=== PATIENT | male | born 1950 | race American Indian/Alaskan Native ===

== ENCOUNTER 2016-08-23 09:48 | Inpatient (IN) | payer OTHER ==
[2016-08-23 09:59] VITALS: BMI 24.1
--- NOTE | 2016-08-23 10:13 | PDOC ---
History of Present Illness - History of Present Illness Initial Comments: 08/23/16 10:59 The patient is a 66 year old male, with a significant past medical history of hypertension, diabetes mellitus, hyperlipidemia (diet controlled), and CKD, who presents to the emergency department with daughter for persistent epigastric pain, nausea, belching, and intermittent dizziness for 8 days. He reports he was seen at [facility] on 08/14/16 and recently discharged on 08/17/16 for chest pain, but reports the onset of his current symptoms occurred 3 days after starting amiodarone 400 mg at discharge. He describes the pain as an intermittent burning to his abdomen diffusely. He reports the burning will intermittently radiate to the middle of his chest. He reports the burning is alleviated about an hour after eating, and states he has been eating every 2-3 hours to avoid experiencing pain. He reports dizziness while experiencing the epigastric burning. He reports nausea, but denies vomiting. He reports he was found to be VTach at [facility] and also reports having an angiogram which was negative for cardiac blockage. He denies shortness of breath, headache. He denies fever, chills, vomit, diarrhea and constipation. He denies dysuria, frequency, urgency and hematuria. Allergies: NKDA Past surgical history: thymectomy (2011), endoscopy (2013) Social history: denies toxic habits PCP - Dr. Maryellen Kline Finished Goods Stock Clerk - Dr. Shaylee Finnegan Acquisition Specialist - Dr. Silva <Annalisa Carrero - Last Filed: 08/23/16 12:19> <Berkley Sims - Last Filed: 08/25/16 10:08> - General Chief Complaint: Pain Stated Complaint: HEARTBURN Time Seen by Provider: 08/23/16 10:08 Past History <Annalisa Carrero - Last Filed: 08/23/16 12:19> - Past Medical History Anemia: No Asthma: No Cancer: No Cardiac Disorders: No (SVT) CVA: No COPD: No CHF: No Dementia: No Diabetes: Yes GI Disorders: No Disorders: No HTN: Yes Hypercholesterolemia: Yes Liver Disease: No Seizures: Yes (episodes during sleep of inability to move or speak) Thyroid Disease: Yes (HYPO) - Psycho/Social/Smoking Cessation Hx Anxiety: No Suicidal Ideation: No Smoking Status: No Smoking History: Never smoked Have you smoked in the past 12 months: No Number of Cigarettes Smoked Daily: 0 Information on smoking cessation initiated: No Hx Alcohol Use: No Drug/Substance Use Hx: No Substance Use Type: None Hx Substance Use Treatment: No <SimsChristinBerkley - Last Filed: 08/25/16 10:08> - Past Medical History Allergies/Adverse Reactions: Allergies Allergy/AdvReac Type Severity Reaction Status Date / Time No Known Allergies Allergy Verified 08/23/16 09:59 Home Medications: Ambulatory Orders Clonidine HCl 0.1 mg PO BID 04/29/13 Insulin Glargine,Hum.rec.anlog [Lantus Solostar PEN -] 15 units SQ HS 04/29/13 Levothyroxine [Synthroid -] 88 mcg PO DAILY 04/29/13 Amiodarone HCl [Cordarone] 400 mg PO DAILY 08/23/16 Atorvastatin Ca [Lipitor] 40 mg PO HS 08/23/16 Carvedilol [Coreg -] 6.25 mg PO BID 08/23/16 Famotidine 20 mg PO DAILY 08/23/16 Losartan Potassium 25 mg PO DAILY 08/23/16 Pantoprazole Sodium 40 mg PO DAILY 08/23/16 Pyridostigmine [Mestinon] 60 mg PO BID 08/23/16 Spironolactone 60 mg PO DAILY 08/23/16 Review of Systems - Review of Systems Able to Perform ROS?: Yes Comments:: 08/23/16 10:59 GENERAL/CONSTITUTIONAL: No fever or chills. No weakness. HEAD, EYES, EARS, NOSE AND THROAT: No change in vision. No ear pain or discharge. No sore throat. CARDIOVASCULAR: No chest pain or shortness of breath. RESPIRATORY: No cough, wheezing, or hemoptysis. GASTROINTESTINAL: (+) abdominal discomfort with epigastric burning, nausea, and gas. No vomiting, diarrhea or constipation. GENITOURINARY: No dysuria, frequency, or change in urination. MUSCULOSKELETAL: No joint or muscle swelling or pain. No neck or back pain. SKIN: No rash NEUROLOGIC: No headache, vertigo, loss of consciousness, or change in strength/ sensation. ENDOCRINE: No increased thirst. No abnormal weight change. HEMATOLOGIC/LYMPHATIC: No anemia, easy bleeding, or history of blood clots. ALLERGIC/IMMUNOLOGIC: No hives or skin allergy. <Annalisa Carrero - Last Filed: 08/23/16 12:19> *Physical Exam - Vital Signs Last Vital Signs Temp Pulse Resp BP Pulse Ox 97.9 F 60 18 181/97 100 08/23/16 09:55 08/23/16 09:55 08/23/16 09:55 08/23/16 09:55 08/23/16 09:55 - Physical Exam Comments: 08/23/16 11:00 GENERAL: Awake, alert, and fully oriented, in no acute distress HEAD: No signs of trauma EYES: PERRLA, EOMI, sclera anicteric, conjunctiva clear ENT: Auricles normal inspection, hearing grossly normal, nares patent, oropharynx clear without exudates. Moist mucosa NECK: Normal ROM, supple, no lymphadenopathy, JVD, or masses LUNGS: Breath sounds equal, clear to auscultation bilaterally. No wheezes, and no crackles HEART: (+) Bradycardic with normal rhythm, normal S1 and S2, no murmurs, rubs or gallops ABDOMEN: Soft, nontender, normoactive bowel sounds. No guarding, no rebound. No masses EXTREMITIES: Normal range of motion, no edema. No clubbing or cyanosis. No cords, erythema, or tenderness NEUROLOGICAL: Cranial nerves II through XII grossly intact. Normal speech, normal gait SKIN: Warm, Dry, normal turgor, no rashes or lesions noted. <Annalisa Carrero - Last Filed: 08/23/16 12:19> - Vital Signs Last Vital Signs Temp Pulse Resp BP Pulse Ox 97.9 F 60 18 181/97 100 08/23/16 09:55 08/23/16 09:55 08/23/16 09:55 08/23/16 09:55 08/23/16 09:55 <Berkley Sims - Last Filed: 08/25/16 10:08> Heart Score/ECG Review - ECG Impressions Comment:: EKG read 09:57- Sinus agatha 57 bpm, ST elev II and III, biphasic T wave V3 <Berkley Sims - Last Filed: 08/25/16 10:08> ED Treatment Course - LABORATORY CBC & Chemistry Diagram: 08/23/16 10:25 08/23/16 10:25 - RADIOLOGY Radiograph Interpretation: 08/23/16 11:16 CXR was read by Dr. Jeff at 10:38 Impression: Status post sternotomy, minimal platelike atelectasis adjacent left heart border. otherwise negative. <Annalisa Carrero - Last Filed: 08/23/16 12:19> - LABORATORY CBC & Chemistry Diagram: 08/25/16 05:35 08/25/16 05:35 <Berkley Sims - Last Filed: 08/25/16 10:08> Medical Decision Making - Medical Decision Making 08/23/16 11:54 Dr. Kline was called at the office requesting a call back for doctor to doctor consult at 11:53 08/23/16 12:02 Dr. Kline returned the call and the patient's case was discussed. 08/23/16 12:19 Dr. Silva was paged at this time requesting a call back for doctor to doctor consult. Dr. Barrientos is on-call today and was paged overhead at 12:20. <Annalisa Carrero - Last Filed: 08/23/16 12:19> - Medical Decision Making Pt presents with belching, epigastric discomfort, "gassy" sensation. He has multiple cardiac risk factors, and his EKG shows a Wellen sign that was not present in last EKG from February. He does not have his records from [facility], but family is going to bring what they have. Found to have unexplained hyponatremia (as per family, his sodium was 124 at [facility], has not followed up with renal). D/ w Dr. Barrientos, will evaluate. I will admit for further evaluation. <Berkley Sims - Last Filed: 08/25/16 10:08> *DC/Admit/Observation/Transfer - Attestations Scribe Attestion: 08/23/16 11:01 Documentation prepared by Annalisa Carrero, acting as er medical technician for Berkley Sims MD <Annalisa Carrero - Last Filed: 08/23/16 12:19> - Discharge Dispostion Admit: Yes <Berkley Sims - Last Filed: 08/25/16 10:08> Diagnosis at time of Disposition: Hyponatremia, EKG abnormalities, Hiccups - Discharge Dispostion Condition at time of disposition: Guarded - Referrals
[2016-08-23 10:46] LABS: BASOPHIL 0.9 % (0-2.0); EOSINOPHIL 2.1 % (0-4.5); MCH 29.8 pg (25.7-33.7); MEAN PLT VOLUME 9.6 fl (7.5-11.1); NEUTROPHILS 73.9 % (42.8-82.8); PLATELET COUNT 242 K/MM3 (134-434); RDW 13.6 % (11.9-15.9); WHITE BLOOD COUNT 8.9 K/mm3 (4.0-10.0)
[2016-08-23 10:55] LABS: ALBUMIN 3.9 g/dl (3.4-5.0); BILIRUBIN,TOTAL 0.9 mg/dL (0.2-1.0); CALCIUM 8.7 mg/dL (8.5-10.1); COCKROFT - GAULT 24.46; CREATININE 2.8 mg/dL (0.7-1.3)
[2016-08-23 10:59] LABS: TOT PROT 7.4 g/dl (6.4-8.2); TROPONIN I 0.04 ng/ml (0.00-0.05)
[2016-08-23] MEDS ORDERED: DICYCLOMINE HCL 20 MG TABLET PO ONE (11:03)
[2016-08-23 11:15] LABS: INR 0.97 (0.82-1.09); PROTHROMBIN TIME (PATIENT) 10.7 SEC (9.98-11.88)
[2016-08-23 11:46] LABS: URINE APPEARANCE CLEAR; URINE BILIRUBIN NEGATIVE (NEGATIVE); URINE BLOOD 2+ (NEGATIVE); URINE COLOR COLORLESS; URINE GLUCOSE (UA) 1+ (NEGATIVE); URINE KETONE NEGATIVE (NEGATIVE); URINE LEUK ESTERASE NEGATIVE (NEGATIVE); URINE NITRITE NEGATIVE (NEGATIVE); URINE PROTEIN 1+ (NEGATIVE); URINE UROBILINOGEN NEGATIVE E.U./dl (0.2-1.0)
[2016-08-23 11:50] LABS: URINE RBC <1 /hpf (0-3)
[2016-08-23] MEDS ORDERED: ACETAMINOPHEN 325 MG TABLET (FP) PO ONE ×2 (12:06→21:22)
[2016-08-23] MEDS ORDERED: ACETAMINOPHEN 325 MG TABLET (FP) ONE ×2 (12:11→21:17)
--- NOTE | 2016-08-23 13:18 | EKG ---
Test Reason : Blood Pressure : / mmHG Vent. Rate : 058 BPM Atrial Rate : 058 BPM P-R Int : 206 ms QRS Dur : 106 ms QT Int : 486 ms P-R-T Axes : 059 012 051 degrees QTc Int : 477 ms SINUS BRADYCARDIA T WAVE ABNORMALITY, CONSIDER ANTERIOR ISCHEMIA PROLONGED QT ABNORMAL ECG WHEN COMPARED WITH ECG OF 23-FEB-2016 14:26, NONSPECIFIC T WAVE ABNORMALITY NOW EVIDENT IN INFERIOR LEADS T WAVE INVERSION NOW EVIDENT IN ANTERIOR LEADS QT HAS LENGTHENED Confirmed by FLORENCIA PEARCE, BING ([id number]) on 08/23/2016 1:18:00 PM Referred By: Confirmed By:BING DON MD
--- NOTE | 2016-08-23 14:02 | PN ---
Teaching Attending Note Name of Resident: Steffi Weaevr ATTENDING PHYSICIAN STATEMENT I saw and evaluated the patient. I reviewed the resident's note and discussed the case with the resident. I agree with the resident's findings and plan as documented. SUBJECTIVE:c/o burping and gas pains x1 week. assoc with abdominal burning sensation radiating up towards his throat. relieved with eating. denies NSAID use but is on asa daily for CAD. home medications recently changed with recent hospitalization at [facility] where he had cardiac cath which was reported as clean and no stents were placed. noted to have sustained vtach there with lifevest placed. echo at that admission with EF 35% no significant valve abnormalities and noraml RV function. denies CP, fever, chills, cough, orthopnea Last BM yesterday, denies melena or BRBPR. Had colonoscopy 3 years ago normal per pt Traveled to [facility] >6 months ago OBJECTIVE: Last Vital Signs Temp Pulse Resp BP Pulse Ox 97.9 F 55 L 20 162/98 100 08/23/16 09:55 08/23/16 11:20 08/23/16 11:20 08/23/16 11:20 08/23/16 12:04 General NAD CV S1 S2 RRR no murmur/rub/gallop Lungs CTA B/L no wheezing/rales/rhonchi Abdomen soft NT/ND no rebound or guarding Extremities no pedal edema ASSESSMENT AND PLAN: 66yo M wtih PMH CAD, Vtach with life vest, DM and CKD and HTN presented to the ER and was admitted for further evaluation of their emergent condition 1. Atypical CP- continuous cardiac monitoring. initial concern for +Wellens sign on EKG here, family doctor present with old EKG showing similar old EKG. recent cardiac cath reported as negative. cardiac enzymes neg x1. symptoms more consistent with GERD vs medication side effect. PPI trial .cardiology consulted for possible further workup. trend cardiac enzymes. on both coreg and amio, may need to decrease coreg in setting of bradycardia. will defer to cardiology. 2. Hyponatremia- stated Na 123 on discharge at recent hospitalization. will give 500cc NS slowly for possible dehydration. repeat labs in evening with cardiac markers. check osms. repeat labs. monitor closely. 3. Acute on CKD- Cr baseline 2.5. ivf. nephrology consulted. avoid nephrotoxic agents. hold ARB 4. Hypothyroid- check TSH. (last one here elevated in 2011) resume LT4 5. DM- check A1c. (last one here elevated in 2010). resume home dosing of lantus , iss, bgm 6. DVT ppx- hep sq
[2016-08-23] MEDS ORDERED: SODIUM CHLORIDE 500 ML IV STA (14:26)
[2016-08-23 14:40] LABS: THYROID STIMULATING HORMONE 7.87 uIU/ml (0.358-3.74)
--- NOTE | 2016-08-23 14:58 | HP ---
CHIEF COMPLAINT: epigastric pain PCP: Dr. Kline HISTORY OF PRESENT ILLNESS: 66 year old male with presents with epigastric burning pain that is relieved by eating, intermittent at rest and activity. PMHx of HTN, CAD, DM and CKD ( baseline 2.4), Myasthenia gravis s/p thymectomy five years ago, hypothyroid, who was recently discharged from [facility] last week for chest pain work up. Cardiac cath negative; EF 35%. Patient was found to be have stress induced cardiomyopathy and ventricular tachycardia started and sent home on amiodarone and life vest. Patient states symptoms started three days after starting new medication. Patient denies sob, palpations, leg swelling. loc, dizziness Patient denies fever, chills, n, v, d, Patient denies changed in bowel or bladder ER course was notable for: (1)EKG read 09:57- Sinus agatha 57 bpm, ST elev II and III, biphasic T wave V3 (2)hyponatremia 121 (3)Cr 2.8 Recent Travel: no PAST MEDICAL HISTORY: HTN, CAD, DM and CKD (baseline 2.4), Myasthenia gravis s/p thymectomy five years ago, hypothyroid, PAST SURGICAL HISTORY: thymectomy Social History: Smoking:no Alcohol:no Drugs: no Family History: Allergies No Known Allergies Allergy (Verified 08/23/16 09:59) HOME MEDICATIONS: Home Medications Medication Instructions Recorded Clonidine HCl 0.1 mg PO BID 04/29/13 Insulin Glargine,Hum.rec.anlog 15 units SQ HS 04/29/13 [Lantus Solostar PEN -] Levothyroxine [Synthroid -] 88 mcg PO DAILY 04/29/13 Amiodarone HCl [Cordarone] 400 mg PO DAILY 08/23/16 Atorvastatin Ca [Lipitor] 40 mg PO HS 08/23/16 Carvedilol [Coreg -] 6.25 mg PO BID 08/23/16 Famotidine 20 mg PO DAILY 08/23/16 Losartan Potassium 25 mg PO DAILY 08/23/16 Pantoprazole Sodium 40 mg PO DAILY 08/23/16 Pyridostigmine [Mestinon] 60 mg PO BID 08/23/16 Spironolactone 60 mg PO DAILY 08/23/16 REVIEW OF SYSTEMS CONSTITUTIONAL: Absent: fever, chills, diaphoresis, generalized weakness, malaise, loss of appetite, weight change HEENT: Absent: rhinorrhea, nasal congestion, throat pain, throat swelling, difficulty swallowing, mouth swelling, ear pain, eye pain, visual changes CARDIOVASCULAR: Absent: chest pain, syncope, palpitations, irregular heart rate, lightheadedness , peripheral edema RESPIRATORY: Absent: cough, shortness of breath, dyspnea with exertion, orthopnea, wheezing, stridor, hemoptysis GASTROINTESTINAL: Absent: abdominal pain, abdominal distension, nausea, vomiting, diarrhea, constipation, melena, hematochezia GENITOURINARY: Absent: dysuria, frequency, urgency, hesitancy, hematuria, flank pain, genital pain MUSCULOSKELETAL: Absent: myalgia, arthralgia, joint swelling, back pain, neck pain SKIN: Absent: rash, itching, pallor HEMATOLOGIC/IMMUNOLOGIC: Absent: easy bleeding, easy bruising, lymphadenopathy, frequent infections ENDOCRINE: Absent: unexplained weight gain, unexplained weight loss, heat intolerance, cold intolerance NEUROLOGIC: Absent: headache, focal weakness or paresthesias, dizziness, unsteady gait, seizure, mental status changes, bladder or bowel incontinence PSYCHIATRIC: Absent: anxiety, depression, suicidal or homicidal ideation, hallucinations. PHYSICAL EXAMINATION Vital Signs - 24 hr 08/23/16 12:04 O2 Sat by Pulse 100 Oximetry (%) GENERAL: Awake, alert, and fully oriented, in no acute distress. HEAD: Normal with no signs of trauma. EYES: Pupils equal, round and reactive to light, extraocular movements intact, sclera anicteric, conjunctiva clear. No lid lag. EARS, NOSE, THROAT: Ears normal, nares patent, oropharynx clear without exudates. Moist mucous membranes. NECK: Normal range of motion, supple without lymphadenopathy, JVD, or masses. LUNGS: Breath sounds equal, clear to auscultation bilaterally. No wheezes, and no crackles. No accessory muscle use. HEART: Regular rate and rhythm, normal S1 and S2 without murmur, rub or gallop. ABDOMEN: Soft, nontender, not distended, normoactive bowel sounds, no guarding, no rebound, no masses. No hepatomegaly or splenomegaly. MUSCULOSKELETAL: Normal range of motion at all joints. No bony deformities or tenderness. No CVA tenderness. UPPER EXTREMITIES: 2+ pulses, warm, well-perfused. No cyanosis. No clubbing. No peripheral edema. LOWER EXTREMITIES: 2+ pulses, warm, well-perfused. No calf tenderness. No peripheral edema. NEUROLOGICAL: Cranial nerves II-XII intact. Normal speech. Normal gait. PSYCHIATRIC: Cooperative. Good eye contact. Appropriate mood and affect. SKIN: Warm, dry, normal turgor, no rashes or lesions noted, normal capillary refill. Current Medications Generic Name Dose Route Start Last Admin Trade Name Freq PRN Reason Stop Dose Admin Al Hydroxide/Mg Hydroxide 30 ml 08/23/16 14:54 08/23/16 16:23 Mylanta Oral Suspension - PO 30 ml Q6H PRN Administration DYSPEPSIA Amiodarone HCl 400 mg 08/24/16 10:00 Cordarone - PO DAILY [facility] Atorvastatin Calcium 40 mg 08/23/16 22:00 Lipitor - PO HS [facility] Carvedilol 6.25 mg 08/23/16 22:00 Coreg - PO BID [facility] Clonidine 0.1 mg 08/23/16 22:00 Catapres - PO BID [facility] Heparin Sodium (Porcine) 5,000 unit 08/23/16 22:00 Heparin - SQ TID MATTHEW Pantoprazole Sodium 100 mls @ 200 mls/hr 08/23/16 14:30 08/23/16 15:01 Protonix 40mg Ivpb (Pre-Docked) IVPB 200 mls/hr DAILY [facility] Administration Insulin Detemir 15 units 08/23/16 22:00 Levemir Vial SQ HS [facility] Levothyroxine Sodium 88 mcg 08/24/16 07:00 Synthroid - PO DAILY@0700 [facility] Pyridostigmine Rydal 60 mg 08/23/16 22:00 Mestinon - PO BID [facility] ASSESSMENT/PLAN: 66 year old male with PMHx CAD, recent diagnosed stress induced cardiomyopathy and v tach, on life vest, admitted for concerning ecg for ACS. recent angio at [facility] negative. #Atypical chest pain secondary to v tac , stress induced cardiomyopathy -continue life vest; continuous cardiac monitoring -ECG on admission: Sinus agatha 57 bpm, ST elev II and III, biphasic T wave V3 -when compared to recent hospitalization; this is similar ; in resolving progression -continue amiodarone po daily 400mg -continue coreg 6.25mg po bid -recent echo showing 35% EF; apical wall akinesis -troponin neg x1; trend second #epigastric pain: -protonix IVPB x1 then po -mylanta #Hyponatremia: -Na 121; last Na was 129 upon dc fron [facility] last weak -no signs of seizure/lethargy -urine studies: osmols -restrict fluid #acute on chronic kidney failure poss secondary to IV contrast -hold nephrotoxic drugs, hold diuretic -nephro consult #hypothyroid: -TSH. t4 -levothyroxine #DM: hemoglobin a1c -lantus 15 U sq HS -insulin ss ; bgm Fluids: restrict 1L per day Electrolytes: trens NA q12h Diet: diabetic VTE prophylaxis: heparin Disposition : cont cardiac monitoring Visit type - Emergency Visit Emergency Visit: Yes ED Registration Date: 08/23/16 Care time: The patient presented to the Emergency Department on the above date and was hospitalized for further evaluation of their emergent condition. - New Patient This patient is new to me today: Yes Date on this admission: 08/23/16 - Critical Care Critical Care patient: No
[2016-08-23] MEDS ORDERED: PANTOPRAZOLE SODIUM 100 ML IVPB ONE (15:01)
[2016-08-23] MEDS: PANTOPRAZOLE SODIUM 100 ML IVPB SCH (15:01)
[2016-08-23] MEDS ORDERED: MAG HYDROX/AL HYDROX/SIMETH 30 ML UNIT-DOSE CUP ONE (16:18)
--- NOTE | 2016-08-23 16:21 | CON.CARD ---
Cardiology Consult (text) - Consultation Consultation Note: CC: abdominal pain 66 yo with h/o hypertension, diabetes mellitus, hyperlipidemia (diet controlled) , CKD myasthenia gravis s/p thymectomy, hypothyroid, recent admission for takatsubo cardiomyopathy (denies preceding stressor) complicated by VT (with life vest) who presents to the emergency department with daughter for persistent epigastric pain. Per report was recently admitted to [facility] for chest pain and noted to have VT. Echo with new cardiomyopathy, EF was noted to be 35%. Cath was negative for CAD and patient thought to have takastubo cardiomyopathy. Sent home with life vest and on amiodarone load. while in the hospital and since leaving he has severe epigastric pain about 1-2 hours after eating or taking pills. The pain comes and goes throughtout the day and is relieved by food. Pain is associated with dizziness/headache?, and diaphoresis, facial flushing. + gas/burping all day long. Had these sx's while still hospitalized and was treated with ppi. Was on tele monitoring at that time, presumbly no arrhythmias were noted . no orthopnea, pnd, sob, le edema, bleeding, palps or transient neurologic symptoms. no f/c/s, cough, congestion, rashes, discharge sodium 129, cr 2.3, discharge EKG agatha 56 bpm with pr 208 ms, qtc 515. pmhx/pshx: per hpi family hx: no cardiac hx social hx: never smoker ros: per hpi Ambulatory Orders Clonidine HCl 0.1 mg PO BID 04/29/13 Insulin Glargine,Hum.rec.anlog [Lantus Solostar PEN -] 15 units SQ HS 04/29/13 Levothyroxine [Synthroid -] 88 mcg PO DAILY 04/29/13 Amiodarone HCl [Cordarone] 400 mg PO DAILY 08/23/16 Atorvastatin Ca [Lipitor] 40 mg PO HS 08/23/16 Carvedilol [Coreg -] 6.25 mg PO BID 08/23/16 Famotidine 20 mg PO DAILY 08/23/16 Losartan Potassium 25 mg PO DAILY 08/23/16 Pantoprazole Sodium 40 mg PO DAILY 08/23/16 Pyridostigmine [Mestinon] 60 mg PO BID 08/23/16 Spironolactone 60 mg PO DAILY 08/23/16 Current Medications Al Hydroxide/Mg Hydroxide (Mylanta Oral Suspension -) 30 ml PO Q6H PRN PRN Reason: DYSPEPSIA Amiodarone HCl (Cordarone -) 400 mg PO DAILY [facility] Atorvastatin Calcium (Lipitor -) 40 mg PO HS [facility] Carvedilol (Coreg -) 6.25 mg PO BID [facility] Clonidine (Catapres -) 0.1 mg PO BID [facility] Heparin Sodium (Porcine) (Heparin -) 5,000 unit SQ TID [facility] Pantoprazole Sodium (Protonix 40mg Ivpb (Pre-Docked)) 100 mls @ 200 mls/hr IVPB DAILY [facility] Last Admin: 08/23/16 15:01 Dose: 200 mls/hr Insulin Detemir (Levemir Vial) 15 units SQ HS [facility] Levothyroxine Sodium (Synthroid -) 88 mcg PO DAILY@0700 [facility] Pyridostigmine [place] (Mestinon -) 60 mg PO BID [facility] Spironolactone (Aldactone -) 60 mg PO DAILY [facility] Vital Signs - 24 hr 08/23/16 08/23/16 08/23/16 09:55 10:20 10:45 Temperature 97.9 F Pulse Rate 60 Pulse Rate [ 58 L 60 Left Radial] Respiratory 18 20 20 Rate Blood Pressure 181/97 Blood Pressure 170/85 183/112 [Left Arm] O2 Sat by Pulse 100 100 100 Oximetry (%) 08/23/16 08/23/16 08/23/16 11:20 12:00 12:04 Temperature Pulse Rate Pulse Rate [ 55 L 51 L Left Radial] Respiratory 20 18 Rate Blood Pressure Blood Pressure 162/98 154/90 [Left Arm] O2 Sat by Pulse 100 100 100 Oximetry (%) 08/23/16 08/23/16 12:45 14:15 Temperature Pulse Rate Pulse Rate [ 51 L 53 L Left Radial] Respiratory 18 18 Rate Blood Pressure Blood Pressure 177/116 158/78 [Left Arm] O2 Sat by Pulse 100 100 Oximetry (%) Intake & Output 08/21/16 08/22/16 08/23/16 08/24/16 07:59 07:59 07:59 07:59 Weight 145 lb Nad, calm jvd flat, neck supple ctab, nl effort rrr nl s1, s2 no mrg + bs soft nt nd ext without e/c/c + dp/pt aaox 3 no carotid bruits CBC, BMP 08/23/16 10:25 08/23/16 10:25 Laboratory Tests 08/23/16 10:25 Total Bilirubin 0.9 AST 21 D ALT 38 D Alkaline Phosphatase 66 D Creatine Kinase 193 Creatine Kinase Index 3.1 CK-MB (CK-2) 2.508 Troponin I 0.04 D Albumin 3.9 TSH 7.87 H EKG here: SB with av delay, prolonged qt, biphasic t waves in v3, v4. tele: SB 50's EKG on last admission from last week. Initially biphasic t waves in precordial leads --> development of associated deep TWI --> deep twi spread to limb leads. --> slow resolution Echo at last admit ([facility]): mod reduced lv fn. with mod apical AK. nl rv. nl valves. per report: cath last week, nl cors. CXR: minimal platelike atelectasis adjacent to left heart border Echo 03/2013: normal LV/RV function, impaired relaxation, mild TR, RVSP 35-40 66 yo with h/o hypertension, diabetes mellitus, hyperlipidemia (diet controlled) , CKD myasthenia gravis s/p thymectomy, hypothyroid, recent admission for takatsubo cardiomyopathy (denies preceding stressor) complicated by VT (with life vest) who presents to the emergency department with daughter for persistent epigastric pain. epigastric pain - symptoms may be causing increased vagal tone and further suppression of heart rate/symptomatic bradycardia (resulting in associated diaphoresis, dizziness), would monitor on tele. Unlikely to be from ventricular arrhythmia since he had sx's while being on telemetry monitoring during hospitalization last week. Nl cors last week on cath makes angina very unlikely. Appears euvolemic with recent normal RV, right sided congestion seems to be less likely etiology for symptoms, but will continue to readdress volume status. (received some IVF in ER and will be holding aldactone) - patient with labile blood pressures would rule out abdominal aortic/vascular etiology with abdominal CTA with contrast (if and when reasonable per renal). For now would screen with abdominal u/s and lactate. - further work up of non-cardiac etiologies per pmd takatsubo cardiomyopathy/VT/bradycardia - on life vest - continue amio, coreg, losartan. per discussion with renal will hold aldactone due to hyponatremia. Would decrease dose of carvedilol in case bradycardia contributing to sx's of dizziness, diaphoresis as mentioned above. Additionally would wean clonidine - currently appears euvolemic as mentioned above prolonged qt - qt shortening in comparison to last admit. con't to monitor. Avoid qt prolonging drugs. HTN - per renal known h/o labile pressures, will defer to renal who know patient well in regards to management hyponatremia - per renal. Treatment of thyroid abnormalities per pmd. l
[2016-08-23] MEDS: MAG HYDROX/AL HYDROX/SIMETH 30 ML UNIT-DOSE CUP PO PRN (16:23)
--- NOTE | 2016-08-23 16:39 | CONSULT ---
Consult - text type - Consultation Consultation Note: Renal Consult for THAO on CKD, Hyponatremia This is a 66 year old Gentleman with PMhx of CKD Stage 4 (baseline Cr 2.4), Myasthenia Gravis s/p thymectomy, Hypothyrodism, DM Type 2, Hyperlipidemia, Hypertension who presented to the ED with complaints of epigastric pain and found to have BUN/Cr of 24/2.8 and Na of 124. Pt s/p recent admission to [facility] for STEMI/ACS and Vtach during which he had a cardiac Cath. Cr on discharge 08/17 was 2.3 and Na was 129. Dx on d/c from [facility] was stress induced cardiomyopathy. Pt is currently on life vest. Denies excessive water intake. No N/V, confusion, lethargy, weakness, seizures. PMhx: As above Allergies: NDKA Family Hx: NC Social Hx: no T/A/D ROS: as per HPI Home Meds: Home Medications Medication Instructions Recorded Clonidine HCl 0.1 mg PO BID 04/29/13 Insulin Glargine,Hum.rec.anlog 15 units SQ HS 04/29/13 [Lantus Solostar PEN -] Levothyroxine [Synthroid -] 88 mcg PO DAILY 04/29/13 Amiodarone HCl [Cordarone] 400 mg PO DAILY 08/23/16 Atorvastatin Ca [Lipitor] 40 mg PO HS 08/23/16 Carvedilol [Coreg -] 6.25 mg PO BID 08/23/16 Famotidine 20 mg PO DAILY 08/23/16 Losartan Potassium 25 mg PO DAILY 08/23/16 Pantoprazole Sodium 40 mg PO DAILY 08/23/16 Pyridostigmine [Mestinon] 60 mg PO BID 08/23/16 Spironolactone 60 mg PO DAILY 08/23/16 Vital Signs Temperature 97.9 F 08/23/16 09:55 Pulse Rate 53 L 08/23/16 14:15 Respiratory Rate 18 08/23/16 14:15 Blood Pressure 158/78 08/23/16 14:15 O2 Sat by Pulse Oximetry (%) 100 08/23/16 14:15 Intake & Output 08/20/16 08/21/16 08/22/16 08/23/16 23:59 23:59 23:59 23:59 Weight 145 lb Gen: NAD, awake and alert HEENT: NC/AT, MMM, No JVD CVS: RRR, No M/R Lungs: CTA, no rales or wheeze Abd: soft NT/ND Ext: No edema, clubbing or cyanosis Gu: No bladder distension Neuro: AAOx3, no focal defects CBC, BMP 08/23/16 10:25 08/23/16 10:25 Laboratory Tests 08/23/16 08/23/16 08/23/16 10:25 10:25 10:25 MCV 85.0 Serum Osmolality 263 L Calcium 8.7 AST 21 D ALT 38 D Creatine Kinase 193 TSH 7.87 H Urine Protein Urine Glucose (UA) Urine Blood Urine Osmolality Urine Creatinine 08/23/16 08/23/16 08/23/16 11:19 11:19 15:20 MCV Serum Osmolality Calcium AST ALT Creatine Kinase TSH Urine Protein 1+ H Urine Glucose (UA) 1+ H Urine Blood 2+ H Urine Osmolality 194 L Urine Creatinine 38.0 A/P 66 year old Gentleman with PMhx of CKD Stage 4 (baseline Cr 2.4),Myasthenia Gravis s/p thymectomy, Hypothyrodism, DM Type 2, Hyperlipidemia, Hypertension who presented to the ED with complaints of epigastric pain and found to have BUN /Cr of 24/2.8 and Na of 124. #Hypo-osmolar Hyponatremia Etiology unclear: Hypothyrodism induced vs. hypovolemia from diuretics Check Urine Na, OSM, TSH, COrtisol, Uric acid Hold Aldactone for now Trend Na Q12h Fluid restriction of 1L daily no IVF or salt tabs at this time titrate up Levothyroxine as per primary no indication for 3% saline #Worsening Renal function in setting of CKD Stage 4 contrast nephropathy from contrast exposure on 08.14? normal fluctuation Trend BUN/Cr no IVF at this time hold diuretics continue Losartan for now #Epigastric Pain ? gastritis vs. ACS Work up as per pimary and cardiology PPI, Maalox as needed #Hypertension continue home meds except diuretic pt know to have liable hypertension #CAD r/o ACS/Cardiomyopathy/V-tach Life vest in place continue anti-arrythmics as per cardiology #Hypothyrodism Check T3, T4 Titrate Synthroid as per primary #DM Type 2 Monitor FS Thank you Damon Odell DO
[2016-08-23 20:11] LABS: CALCIUM 8.8 mg/dL (8.5-10.1); COCKROFT - GAULT 25.37; CREATININE 2.7 mg/dL (0.7-1.3)
[2016-08-23 20:13] LABS: TROPONIN I 0.05 ng/ml (0.00-0.05)
[2016-08-23] MEDS: ATORVASTATIN CA 40 MG TABLET (FP) PO SCH (21:32)
[2016-08-23] MEDS: PYRIDOSTIGMINE BROMIDE 60 MG TABLET PO SCH (21:32)
[2016-08-23] MEDS: HEPARIN NA (PORCINE) 5,000 UNITS/ML 1ML VIAL SQ SCH (21:34)
[2016-08-23] MEDS: INSULIN DETEMIR 100 UNITS/ML MDV SQ SCH (21:38)
[2016-08-23] MEDS ORDERED: CARVEDILOL 6.25 MG TABLET (FP) PO SCH (22:00)
[2016-08-23] MEDS ORDERED: cloNIDine HCL 0.1 MG TABLET PO SCH (22:00)
[2016-08-24] MEDS ORDERED: METOCLOPRAMIDE HCL INJECTION 10 MG/2 ML VIAL IVPUSH ONE (04:09)
[2016-08-24] MEDS: LEVOTHYROXINE NA 88 MCG TABLET (FP) PO SCH (06:55)
[2016-08-24] MEDS: HEPARIN NA (PORCINE) 5,000 UNITS/ML 1ML VIAL SQ SCH ×3 (06:55→22:22)
[2016-08-24 08:27] LABS: MCH 29.5 pg (25.7-33.7); MCHC 34.7 g/dl (32.0-35.9); MEAN CELL VOLUME 84.9 fl (80-96); MEAN PLT VOLUME 10.1 fl (7.5-11.1); PLATELET COUNT 248 K/MM3 (134-434); WHITE BLOOD COUNT 9.4 K/mm3 (4.0-10.0)
[2016-08-24 09:59] LABS: BILIRUBIN,TOTAL 1.1 mg/dL (0.2-1.0); CALCIUM 8.5 mg/dL (8.5-10.1); COCKROFT - GAULT 23.28; CREATININE 2.8 mg/dL (0.7-1.3); MAGNESIUM 2.3 mg/dL (1.8-2.4); PHOSPHOROUS 4.7 mg/dL (2.5-4.9); TOT PROT 7.8 g/dl (6.4-8.2)
[2016-08-24] MEDS ORDERED: SPIRONOLACTONE 25 MG TABLET (FP) PO SCH (10:00)
[2016-08-24] MEDS: MAG HYDROX/AL HYDROX/SIMETH 30 ML UNIT-DOSE CUP PO PRN ×3 (10:01→22:27)
[2016-08-24] MEDS: cloNIDine HCL 0.1 MG TABLET PO SCH (10:01)
[2016-08-24] MEDS: AMIODARONE HCL 200 MG TABLET (FP) PO SCH (10:01)
[2016-08-24] MEDS: CARVEDILOL 3.125 MG TABLET (FP) PO SCH ×2 (10:02→22:23)
[2016-08-24] MEDS: PANTOPRAZOLE SODIUM 100 ML IVPB SCH ×3 (10:03→10:15)
[2016-08-24] MEDS ORDERED: PT OWN MED DRAWER 7, Y5N ONE (10:07)
[2016-08-24 10:13] LABS: EOSINOPHIL 1.9 % (0-4.5); MCH 29.2 pg (25.7-33.7); MCHC 34.3 g/dl (32.0-35.9); MEAN PLT VOLUME 10.3 fl (7.5-11.1); NEUTROPHILS 72.2 % (42.8-82.8); PLATELET COUNT 257 K/MM3 (134-434); RDW 13.9 % (11.9-15.9); WHITE BLOOD COUNT 9.4 K/mm3 (4.0-10.0)
[2016-08-24] MEDS: PYRIDOSTIGMINE BROMIDE 60 MG TABLET PO SCH ×2 (10:15→22:25)
[2016-08-24 10:21] LABS: FREE T4 0.8 ng/dl (0.76-1.16)
--- NOTE | 2016-08-24 10:34 | PN ---
Progress Note (short form) - Note Progress Note: s: no cp sob palps dizzy; abd pain better o: Vital Signs Period Temp Pulse Resp BP Sys/Pearson Pulse Ox Last 24 Hr 97.8 F-98.9 F 51-60 18-22 132-187/78-116 99-100 Nad, calm jvd flat, neck supple ctab, nl effort rrr nl s1, s2 no mrg + bs soft nt nd ext without e/c/c aaox 3 Current Medications Generic Name Dose Route Start Last Admin Trade Name Freq PRN Reason Stop Dose Admin Al Hydroxide/Mg Hydroxide 30 ml 08/23/16 14:54 08/24/16 10:01 Mylanta Oral Suspension - PO 30 ml Q6H PRN Administration DYSPEPSIA Amiodarone HCl 400 mg 08/24/16 10:00 08/24/16 10:01 Cordarone - PO 400 mg DAILY [facility]W Administration Atorvastatin Calcium 40 mg 08/23/16 22:00 08/23/16 21:32 Lipitor - PO 40 mg HS MATTHEW Administration Carvedilol 3.125 mg 08/24/16 10:00 08/24/16 10:02 Coreg - PO Not Given BID MATTHEW Clonidine 0.1 mg 08/24/16 10:00 08/24/16 10:01 Catapres - PO 0.1 mg DAILY [facility]W Administration Heparin Sodium (Porcine) 5,000 unit 08/23/16 22:00 08/24/16 06:55 Heparin - SQ 5,000 unit TID [facility] Administration Pantoprazole Sodium 100 mls @ 200 mls/hr 08/23/16 14:30 08/24/16 10:15 Protonix 40mg Ivpb (Pre-Docked) IVPB 200 mls/hr DAILY [facility] Administration Insulin Detemir 15 units 08/23/16 22:00 08/23/16 21:38 Levemir Vial SQ 15 units HS [facility] Administration Levothyroxine Sodium 88 mcg 08/24/16 07:00 08/24/16 06:55 Synthroid - PO 88 mcg DAILY@0700 [facility]W Administration Pyridostigmine [place] 60 mg 08/23/16 22:00 08/24/16 10:15 Mestinon - PO 60 mg BID MATTHEW Administration CBC, BMP 08/24/16 05:58 08/24/16 05:58 EKG here: SB with av delay, prolonged qt, biphasic t waves in v3, v4. tele: SB 50's EKG on last admission from last week. Initially biphasic t waves in precordial leads --> development of associated deep TWI --> deep twi spread to limb leads. --> slow resolution Echo at [facility] mod reduced lv fn. with mod apical AK. nl rv. nl valves. per report: cath last week, nl cors. CXR: minimal platelike atelectasis adjacent to left heart border Echo 03/2013: normal LV/RV function, impaired relaxation, mild TR, RVSP 35-40 a/p: 66 yo with h/o hypertension, diabetes mellitus, hyperlipidemia (diet controlled), CKD myasthenia gravis s/p thymectomy, hypothyroid, recent admission for takatsubo cardiomyopathy (denies preceding stressor) complicated by VT (with life vest) who presents to the emergency department with daughter for persistent epigastric pain. epigastric pain - symptoms may be causing increased vagal tone and further suppression of heart rate/symptomatic bradycardia (resulting in associated diaphoresis, dizziness), would monitor on tele. Unlikely to be from ventricular arrhythmia since he had sx's while being on telemetry monitoring during hospitalization last week at [facility]. Nl cors last week on cath makes angina very unlikely. Appears euvolemic with recent normal RV, right sided congestion seems to be less likely etiology for symptoms, but will continue to readdress volume status. (received some IVF in ER and will be holding aldactone) - patient with labile blood pressures would rule out abdominal aortic/vascular etiology with abdominal CTA with contrast (if and when reasonable per renal). For now would screen with abdominal u/s and lactate. - further work up of non-cardiac etiologies per pmd takatsubo cardiomyopathy/VT/bradycardia - on life vest - continue amio, coreg, losartan. holding aldactone due to hyponatremia. decreased dose of carvedilol in case bradycardia contributing to sx's of dizziness, diaphoresis as mentioned above. Additionally weaning clonidine - currently appears euvolemic prolonged qt - qt shortening in comparison to last admit. con't to monitor. Avoid qt prolonging drugs. HTN - hx of labile bp, cont current meds hyponatremia - per renal. Treatment of thyroid abnormalities per pmd.
--- NOTE | 2016-08-24 12:47 | PN ---
Progress Note (short form) - Note Progress Note: Renal Follow up for Hyponatremia and CKD Pt seen and examined at the bedside denies any abd pain today no sob, chest pain, DANIELLE, confusion, lethargy or weakness denies drinking a lot of water good urine output Vital Signs Temperature 98.1 F 08/24/16 10:00 Pulse Rate 52 L 08/24/16 10:00 Respiratory Rate 20 08/24/16 10:00 Blood Pressure 144/80 08/24/16 10:00 O2 Sat by Pulse Oximetry (%) 99 08/23/16 19:00 Intake & Output 08/21/16 08/22/16 08/23/16 08/24/16 23:59 23:59 23:59 23:59 Intake Total 200 Balance 200 Weight 145 lb 138 lb Gen: NAD, awake and alert CVS: RRR, No M/R Lungs: CTA, no rales or wheeze Abd: soft NT/ND Ext: No edema, clubbing or cyanosis CBC, BMP 08/24/16 05:58 08/24/16 05:58 Current Medications Al Hydroxide/Mg Hydroxide (Mylanta Oral Suspension -) 30 ml PO Q6H PRN PRN Reason: DYSPEPSIA Last Admin: 08/24/16 10:01 Dose: 30 ml Amiodarone HCl (Cordarone -) 400 mg PO DAILY [facility] Last Admin: 08/24/16 10:01 Dose: 400 mg Atorvastatin Calcium (Lipitor -) 40 mg PO HS [facility] Last Admin: 08/23/16 21:32 Dose: 40 mg Carvedilol (Coreg -) 3.125 mg PO BID [facility] Last Admin: 08/24/16 10:02 Dose: Not Given Clonidine (Catapres -) 0.1 mg PO DAILY [facility] Last Admin: 08/24/16 10:01 Dose: 0.1 mg Heparin Sodium (Porcine) (Heparin -) 5,000 unit SQ TID [facility] Last Admin: 08/24/16 06:55 Dose: 5,000 unit Pantoprazole Sodium (Protonix 40mg Ivpb (Pre-Docked)) 100 mls @ 200 mls/hr IVPB DAILY [facility] Last Admin: 08/24/16 10:15 Dose: 200 mls/hr Insulin Detemir (Levemir Vial) 15 units SQ [facility] Last Admin: 08/23/16 21:38 Dose: 15 units Levothyroxine Sodium (Synthroid -) 88 mcg PO DAILY@0700 [facility] Last Admin: 08/24/16 06:55 Dose: 88 mcg Pyridostigmine [place] (Mestinon -) 60 mg PO BID [facility] Last Admin: 08/24/16 10:15 Dose: 60 mg A/P 66 year old Gentleman with PMhx of CKD Stage 4 (baseline Cr 2.4),Myasthenia Gravis s/p thymectomy, Hypothyrodism, DM Type 2, Hyperlipidemia, Hypertension who presented to the ED with complaints of epigastric pain and found to have BUN /Cr of 24/2.8 and Na of 124. #Hypo-osmolar Hyponatremia Etiology unclear: Hypothyrodism induced vs. hypovolemia from diuretics Serum Na 123 depite being 126 yesterday evening start salt tabs 1g daily Trend Na Q12h Uric acid is normal Urine Na not reported pt appears evolemic at the present time #Worsening Renal function in setting of CKD Stage 4 contrast nephropathy from contrast exposure on 08.14? normal fluctuation continue to trend BUN/Cr #Epigastric Pain improved with PPI and Maalox #Hypertension continue Coreg, Clonidoine #CAD r/o ACS/Cardiomyopathy/V-tach Life vest in place continue anti-arrythmics as per cardiology #Hypothyrodism Check T3, T4 Titrate Synthroid as per primary Thank you Damon Odell DO
[2016-08-24] MEDS: SODIUM CHLORIDE 1 GM TABLET PO SCH (13:55)
--- NOTE | 2016-08-24 14:49 | PN ---
Physical Exam: SUBJECTIVE: Patient seen and examined epigastric pain improved; no episodes overnight; tolerating diet. NA levela dropped again today. Bradycardic. Denies chest pain, sob, palpitations. OBJECTIVE: Vital Signs Period Temp Pulse Resp BP Sys/Pearson Pulse Ox Last 24 Hr 97.8 F-98.9 F 51-55 20-22 132-187/79-96 99-100 GENERAL: The patient is awake, alert, and fully oriented, in no acute distress. HEAD: Normal with no signs of trauma. EYES: PERRL, extraocular movements intact, sclera anicteric, conjunctiva clear. No ptosis. ENT: Ears normal, nares patent, oropharynx clear without exudates, moist mucous membranes. NECK: Trachea midline, full range of motion, supple. LUNGS: Breath sounds equal, clear to auscultation bilaterally, no wheezes, no crackles, no accessory muscle use. HEART: bradycardic and rhythm, S1, S2 without murmur, rub or gallop. ABDOMEN: Soft, nontender, nondistended, normoactive bowel sounds, no guarding, no rebound, no hepatosplenomegaly, no masses. EXTREMITIES: 2+ pulses, warm, well-perfused, no edema. NEUROLOGICAL: Cranial nerves II through XII grossly intact. Normal speech, gait not observed. PSYCH: Normal mood, normal affect. SKIN: Warm, dry, normal turgor, no rashes or lesions noted Laboratory Results - last 24 hr 08/23/16 08/23/16 08/23/16 15:20 19:25 19:25 WBC RBC Hgb Hct MCV MCHC RDW Plt Count MPV Neutrophils % Lymphocytes % Monocytes % Eosinophils % Basophils % Sodium 126 L Potassium 5.2 H Chloride 89 L Carbon Dioxide 26 Anion Gap 11 BUN 25 H Creatinine 2.7 H Creat Clearance w eGFR POC Glucometer Random Glucose 122 H D Lactic Acid Calcium 8.8 Phosphorus Magnesium Total Bilirubin AST ALT Alkaline Phosphatase Creatine Kinase 204 CK-MB (CK-2) Rel Index Cancelled Troponin I 0.05 Total Protein Albumin Free T4 Urine Osmolality 194 L 08/23/16 08/24/16 08/24/16 21:29 05:09 05:58 WBC 9.4 RBC 4.55 Hgb 13.4 Hct 38.6 MCV 84.9 MCHC 34.7 RDW 14.0 Plt Count 248 MPV 10.1 Neutrophils % Lymphocytes % Monocytes % Eosinophils % Basophils % Sodium Potassium Chloride Carbon Dioxide Anion Gap BUN Creatinine Creat Clearance w eGFR POC Glucometer 157 150 Random Glucose Lactic Acid Calcium Phosphorus Magnesium Total Bilirubin AST ALT Alkaline Phosphatase Creatine Kinase CK-MB (CK-2) Rel Index Troponin I Total Protein Albumin Free T4 Urine Osmolality 08/24/16 08/24/16 08/24/16 05:58 05:58 09:25 WBC 9.4 RBC 4.58 Hgb 13.4 Hct 38.9 MCV 85.0 MCHC 34.3 RDW 13.9 Plt Count 257 MPV 10.3 Neutrophils % 72.2 Lymphocytes % 13.9 Monocytes % 11.0 H Eosinophils % 1.9 Basophils % 1.0 Sodium 123 L* Potassium 5.1 Chloride 88 L Carbon Dioxide 25 Anion Gap 10 BUN 28 H Creatinine 2.8 H Creat Clearance w eGFR 22.86 POC Glucometer Random Glucose 157 H D Lactic Acid 1.359 Calcium 8.5 Phosphorus 4.7 Magnesium 2.3 Total Bilirubin 1.1 H D AST 18 ALT 38 Alkaline Phosphatase 69 Creatine Kinase CK-MB (CK-2) Rel Index Troponin I Total Protein 7.8 Albumin 4.0 Free T4 0.80 Urine Osmolality Active Medications Generic Name Dose Route Start Last Admin Trade Name Freq PRN Reason Stop Dose Admin Al Hydroxide/Mg Hydroxide 30 ml 08/23/16 14:54 08/24/16 14:04 Mylanta Oral Suspension - PO 30 ml Q6H PRN Administration DYSPEPSIA Amiodarone HCl 400 mg 08/24/16 10:00 08/24/16 10:01 Cordarone - PO 400 mg DAILY MATTHEW Administration Atorvastatin Calcium 40 mg 08/23/16 22:00 08/23/16 21:32 Lipitor - PO 40 mg HS MATTHEW Administration Carvedilol 3.125 mg 08/24/16 10:00 08/24/16 10:02 Coreg - PO Not Given BID MATTHEW Clonidine 0.1 mg 08/24/16 10:00 08/24/16 10:01 Catapres - PO 0.1 mg DAILY MATTHEW Administration Heparin Sodium (Porcine) 5,000 unit 08/23/16 22:00 08/24/16 13:55 Heparin - SQ 5,000 unit TID MATTHEW Administration Pantoprazole Sodium 100 mls @ 200 mls/hr 08/23/16 14:30 08/24/16 10:15 Protonix 40mg Ivpb (Pre-Docked) IVPB 200 mls/hr DAILY MATTHEW Administration Insulin Detemir 15 units 08/23/16 22:00 08/23/16 21:38 Levemir Vial SQ 15 units HS MATTHEW Administration Levothyroxine Sodium 88 mcg 08/24/16 07:00 08/24/16 06:55 Synthroid - PO 88 mcg DAILY@0700 MATTHEW Administration Pyridostigmine [place] 60 mg 08/23/16 22:00 08/24/16 10:15 Mestinon - PO 60 mg BID MATTHEW Administration Sodium Chloride 1 gm 08/24/16 13:00 08/24/16 13:55 Sodium Chloride Tablet - PO 1 gm DAILY MATTHEW Administration ASSESSMENT/PLAN: 66 year old male with PMHx CAD, recent diagnosed stress induced cardiomyopathy and v tach, on life vest, admitted for concerning ecg for ACS. recent angio at [facility] negative. #bradycardic; titrate coreg; #Atypical chest pain secondary to v tac , stress induced cardiomyopathy -continue life vest; continuous cardiac monitoring -ECG on admission: Sinus agatha 57 bpm, ST elev II and III, biphasic T wave V3 -when compared to recent hospitalization; this is similar ; in resolving progression -continue amiodarone po daily 400mg -continue coreg 6.25mg po bid -recent echo showing 35% EF; apical wall akinesis -troponin neg x1; trend second #epigastric pain: improved with antacids -protonix IVPB x1 then po -mylanta -abdominal US r/o other pathology -Lactic acid normal #Hyponatremia hypoosmolar; -Na 121 ->126-->123l -no signs of seizure/lethargy -urine studies: osmols -restrict fluid -start salt tablet 1gm day -check sodium q12h #acute on chronic kidney failure poss secondary to IV contrast: Cr tredning up 2.8 -hold nephrotoxic drugs, hold diuretic -nephro consult #hypothyroid: most likey subacute afer recent hospitalization ; would leave home medication as is -TSH.elevated: t4 with in normal limits -levothyroxine #DM: hemoglobin a1c -lantus 15 U sq HS -insulin ss ; bgm Fluids: restrict 1L per day Electrolytes: trend NA q12h Diet: diabetic VTE prophylaxis: heparin Disposition : cont cardiac monitoring; trend sodium Visit type - Emergency Visit Emergency Visit: Yes ED Registration Date: 08/23/16 Care time: The patient presented to the Emergency Department on the above date and was hospitalized for further evaluation of their emergent condition. - New Patient This patient is new to me today: No - Critical Care Critical Care patient: No
--- NOTE | 2016-08-24 17:59 | PN ---
Teaching Attending Note Name of Resident: Steffi Weaver ATTENDING PHYSICIAN STATEMENT I saw and evaluated the patient. I reviewed the resident's note and discussed the case with the resident. I agree with the resident's findings and plan as documented. SUBJECTIVE:currently asymptomatic. denies CP, SOB,fevr, chills, palpitations, N/ V/C/D. burning sensation has resolved. OBJECTIVE: Last Vital Signs Temp Pulse Resp BP Pulse Ox 98.1 F 52 L 20 144/80 99 08/24/16 10:00 08/24/16 10:00 08/24/16 10:00 08/24/16 10:08/24/16 09:00 General NAD CV S1 S2 bradycardic no murmur/rub/gallop Lungs CTA B/L no wheezing/rales/rhonchi Abdomen soft NT/ND no rebound or guarding Extremities no pedal edema ASSESSMENT AND PLAN: 66yo M wtih PMH CAD, Vtach with life vest, DM and CKD and HTN presented to the ER and was admitted for further evaluation of their emergent condition 1. Atypical CP- continuous cardiac monitoring. remains bradycardic on decreased dose of coreg. cont to monitor. check abdominal u/s to r/o abdominal pathology for pain which may be contributing to bradycardia (vagal nerve). cardio on board. 2. Hyponatremia- modest improvement. on water restriction. started on salt tablets today by nephrology. monitor BID. 3. Acute on CKD- Cr baseline 2.5. slight trend up. likely contrast induced due to recent cath last week. cont to trend. avoid nephrotoxic agents. hold ARB 4. Hypothyroid- likely sick euthyroid. TSH elevated however normal T4. will not adjust LT4 at this time. will need repeat TSH in 6 weeks. 5. DM- controlled. resume home dosing of lantus, iss, bgm 6. Hyperkalemia- likely in setting of THAO. not treated. on repeat improved. will monitor closely for arrhythmia. 7. DVT ppx- hep sq
[2016-08-24 18:53] LABS: CALCIUM 8.6 mg/dL (8.5-10.1); COCKROFT - GAULT 23.28; CREATININE 2.8 mg/dL (0.7-1.3)
[2016-08-24] MEDS: INSULIN DETEMIR 100 UNITS/ML MDV SQ SCH (22:23)
[2016-08-24] MEDS: ATORVASTATIN CA 40 MG TABLET (FP) PO SCH (22:23)
[2016-08-25] MEDS: HEPARIN NA (PORCINE) 5,000 UNITS/ML 1ML VIAL SQ SCH ×3 (06:20→21:46)
[2016-08-25 07:19] LABS: BASOPHIL 0.7 % (0-2.0); MCH 29.7 pg (25.7-33.7); MCHC 35.2 g/dl (32.0-35.9); MEAN CELL VOLUME 84.6 fl (80-96); MEAN PLT VOLUME 9.5 fl (7.5-11.1); PLATELET COUNT 250 K/MM3 (134-434); RDW 13.3 % (11.9-15.9); WHITE BLOOD COUNT 9.8 K/mm3 (4.0-10.0)
[2016-08-25 07:48] LABS: ALBUMIN 3.8 g/dl (3.4-5.0); CALCIUM 8.9 mg/dL (8.5-10.1); COCKROFT - GAULT 22.48; CREATININE 2.9 mg/dL (0.7-1.3); MAGNESIUM 2.8 mg/dL (1.8-2.4); PHOSPHOROUS 4.2 mg/dL (2.5-4.9)
[2016-08-25 07:50] LABS: BILIRUBIN,TOTAL 1.2 mg/dL (0.2-1.0)
[2016-08-25] MEDS: CARVEDILOL 3.125 MG TABLET (FP) PO SCH ×2 (09:38→21:46)
[2016-08-25] MEDS: LEVOTHYROXINE NA 88 MCG TABLET (FP) PO SCH (09:38)
[2016-08-25] MEDS: cloNIDine HCL 0.1 MG TABLET PO SCH (09:39)
[2016-08-25] MEDS: PANTOPRAZOLE SODIUM 100 ML IVPB SCH (09:39)
[2016-08-25] MEDS: AMIODARONE HCL 200 MG TABLET (FP) PO SCH (09:39)
[2016-08-25] MEDS ORDERED: PT OWN MED DRAWER 7, Y5N ONE (10:01)
[2016-08-25] MEDS: SODIUM CHLORIDE 1 GM TABLET PO SCH (10:04)
[2016-08-25] MEDS: PYRIDOSTIGMINE BROMIDE 60 MG TABLET PO SCH ×2 (10:04→21:47)
[2016-08-25] MEDS ORDERED: SODIUM POLYSTYRENE SULFONATE 15 GM/60 ML BOTTLE PO ONE (11:01)
--- NOTE | 2016-08-25 11:01 | PN ---
Teaching Attending Note Name of Resident: Steffi Weaver ATTENDING PHYSICIAN STATEMENT I saw and evaluated the patient. I reviewed the resident's note and discussed the case with the resident. I agree with the resident's findings and plan as documented. SUBJECTIVE:states he has some gas pains but denies any abdominal pain or burning sensation. denies CP, fever, chills, N/V/C/D, palpitations, dizzyness OBJECTIVE: Last Vital Signs Temp Pulse Resp BP Pulse Ox 97.6 F 55 L 20 144/78 99 08/25/16 01:00 08/25/16 01:00 08/25/16 01:00 08/25/16 01:00 08/24/16 19:57 General NAD CV S1 S2 bradycardic no murmur/rub/gallop Lungs CTA B/L no wheezing/rales/rhonchi Abdomen soft NT/ND no rebound or guarding Extremities no pedal edema ASSESSMENT AND PLAN: 66yo M wtih PMH CAD, Vtach with life vest, DM and CKD and HTN presented to the ER and was admitted for further evaluation of their emergent condition 1. Atypical CP- continuous cardiac monitoring. remains bradycardic on decreased dose of coreg. d/w cardio will decrease amio loading dose to 200mg and monitor. may also relate to abdominal pain. abdominal u/s done this AM, awaiting results. cardio on board. 2. Hyponatremia- improved. on salt tabs. cont to monitor BID. on water restriction. 3. Acute on CKD- Cr baseline 2.5. continues to trend up. likely contrast induced. nephrology on board. avoid nephrotoxic agents. hold ARB 4. Hypothyroid- likely sick euthyroid. TSH elevated however normal T4. will not adjust LT4 at this time. will need repeat TSH in 6 weeks. 5. DM- controlled. resume home dosing of lantus, iss, bgm 6. Hyperkalemia- likely in setting of THAO. give kayexylate. will monitor closely for arrhythmia. 7. DVT ppx- hep sq
--- NOTE | 2016-08-25 11:06 | PN ---
Addendum entered and electronically signed by Steffi Weaver RES 08/25/16 14 :59: amiodarone decreased to 200mg po daily Original Note: Physical Exam: SUBJECTIVE: Patient seen and examined epigastric pain has improved, did have one episode overnight , feeling of adryan in abdomen. Denies chest pain, sob, n,v, . OBJECTIVE: Vital Signs Period Temp Pulse Resp BP Sys/Pearson Pulse Ox Last 24 Hr 97.6 F-98.2 F 54-55 18-20 144-162/78-91 99 GENERAL: The patient is awake, alert, and fully oriented, in no acute distress. HEAD: Normal with no signs of trauma. EYES: PERRL, extraocular movements intact, sclera anicteric, conjunctiva clear. No ptosis. ENT: Ears normal, nares patent, oropharynx clear without exudates, moist mucous membranes. NECK: Trachea midline, full range of motion, supple. LUNGS: Breath sounds equal, clear to auscultation bilaterally, no wheezes, no crackles, no accessory muscle use. HEART: bradycardic and regular rhythm, S1, S2 without murmur, rub or gallop. ABDOMEN: Soft, nontender, nondistended, normoactive bowel sounds, no guarding, no rebound, no hepatosplenomegaly, no masses. EXTREMITIES: 2+ pulses, warm, well-perfused, no edema. NEUROLOGICAL: Cranial nerves II through XII grossly intact. Normal speech, gait not observed. PSYCH: Normal mood, normal affect. SKIN: Warm, dry, normal turgor, no rashes or lesions noted Laboratory Results - last 24 hr 08/24/16 08/24/16 08/24/16 05:58 17:40 22:19 WBC RBC Hgb Hct MCV MCHC RDW Plt Count MPV Neutrophils % Lymphocytes % Monocytes % Eosinophils % Basophils % Sodium 124 L* Potassium 5.3 H Chloride 86 L Carbon Dioxide 25 Anion Gap 13 BUN 29 H Creatinine 2.8 H Creat Clearance w eGFR POC Glucometer 140 Random Glucose 283 H D Calcium 8.6 Phosphorus Magnesium Total Bilirubin AST ALT Alkaline Phosphatase Total Protein Albumin Cortisol AM Sample 20.6 08/25/16 08/25/16 08/25/16 05:35 05:35 06:08 WBC 9.8 RBC 4.27 Hgb 12.7 Hct 36.2 MCV 84.6 MCHC 35.2 RDW 13.3 Plt Count 250 MPV 9.5 Neutrophils % 70.0 Lymphocytes % 16.0 Monocytes % 11.3 H Eosinophils % 2.0 Basophils % 0.7 Sodium 127 L Potassium 5.3 H Chloride 90 L Carbon Dioxide 26 Anion Gap 11 BUN 33 H Creatinine 2.9 H Creat Clearance w eGFR 21.95 POC Glucometer 126 Random Glucose 119 H D Calcium 8.9 Phosphorus 4.2 Magnesium 2.8 H D Total Bilirubin 1.2 H AST 10 L D ALT 31 Alkaline Phosphatase 60 Total Protein 7.0 Albumin 3.8 Cortisol AM Sample Active Medications Generic Name Dose Route Start Last Admin Trade Name Freq PRN Reason Stop Dose Admin Al Hydroxide/Mg Hydroxide 30 ml 08/23/16 14:54 08/24/16 22:27 Mylanta Oral Suspension - PO 30 ml Q6H PRN Administration DYSPEPSIA Amiodarone HCl 400 mg 08/24/16 10:00 08/25/16 09:39 Cordarone - PO 400 mg DAILY MATTHEW Administration Atorvastatin Calcium 40 mg 08/23/16 22:00 08/24/16 22:23 Lipitor - PO 40 mg HS MATTHEW Administration Carvedilol 3.125 mg 08/24/16 10:00 08/25/16 09:38 Coreg - PO 3.125 mg BID MATTHEW Administration Clonidine 0.1 mg 08/24/16 10:00 08/25/16 09:39 Catapres - PO 0.1 mg DAILY MATTHEW Administration Heparin Sodium (Porcine) 5,000 unit 08/23/16 22:00 08/25/16 06:20 Heparin - SQ 5,000 unit TID MATTHEW Administration Pantoprazole Sodium 100 mls @ 200 mls/hr 08/23/16 14:30 08/25/16 09:39 Protonix 40mg Ivpb (Pre-Docked) IVPB 200 mls/hr DAILY MATTHEW Administration Insulin Aspart 1 vial 08/25/16 11:00 Novolog Vial Sliding Scale - SQ ACHS [facility] Protocol Insulin Detemir 15 units 08/23/16 22:00 08/24/16 22:23 Levemir Vial SQ 15 units HS MATTHEW Administration Levothyroxine Sodium 88 mcg 08/24/16 07:00 08/25/16 09:38 Synthroid - PO 88 mcg DAILY@0700 MATTHEW Administration Pyridostigmine [place] 60 mg 08/23/16 22:00 08/25/16 10:04 Mestinon - PO 60 mg BID MATTHEW Administration Sodium Chloride 1 gm 08/24/16 13:00 08/25/16 10:04 Sodium Chloride Tablet - PO 1 gm DAILY MATTHEW Administration Imaging: Abdominal US: The right and left kidney measured 8.2 and a cm , respectively. Slightly irregular contour of the left renal mid to lower pole, anteriorly with a mass like density measuring 2.1 cm that may represent a hypertrophied column of Naif versus a mass. It was also seen on prior ultrasound dated 04/18/2016 and prior ultrasound dated 06/12/2011 ASSESSMENT/PLAN: 66 year old male with PMHx CAD, recent diagnosed stress induced cardiomyopathy and v tach, on life vest, admitted for concerning ecg for ACS. recent angio at [facility] negative. #bradycardic; -coreg at lowest dose -consult with cardiology, if possible to adjust amiodarone to maintenance dose ; #Atypical chest pain secondary to v tac , stress induced cardiomyopathy; epigastric pain : improved with antacids -continue life vest; continuous cardiac monitoring -ECG on admission: Sinus agatha 57 bpm, ST elev II and III, biphasic T wave V3 -when compared to recent hospitalization; this is similar ; in resolving progression -recent echo showing 35% EF; apical wall motion abn -troponin wnl -lactic acid normal -amiodarone/ coreg adjust as per cardio -protonix po -mylanta -abdominal US : left renal pole mass : details above #Hyponatremia hypoosmolar; -Na 121 ->126-->123-->124 -no signs of seizure/lethargy -urine studies: osmols -restrict fluid -start salt tablet 1gm day -check sodium q12h #acute on chronic kidney failure poss secondary to IV contrast: Cr tredning up 2.8 -hold nephrotoxic drugs, hold diuretic -nephro consult #hypothyroid: most likey subacute afer recent hospitalization ; would leave home medication as is -TSH.elevated: t4 with in normal limits -levothyroxine #DM: hemoglobin a1c -lantus 15 U sq HS -insulin ss ; bgm #mass like density of left kidney: -f/u MRI Fluids: restrict 1L per day Electrolytes: trend NA q12h Diet: diabetic VTE prophylaxis: heparin Disposition : cont cardiac monitoring; trend sodium Visit type - Emergency Visit Emergency Visit: Yes ED Registration Date: 08/23/16 Care time: The patient presented to the Emergency Department on the above date and was hospitalized for further evaluation of their emergent condition. - New Patient This patient is new to me today: No - Critical Care Critical Care patient: No
[2016-08-25] MEDS ORDERED: SIMETHICONE 80 MG TAB.CHEW (FP) PO PRN (11:11)
[2016-08-25] MEDS: INSULIN SLIDING SCALE (NOVOLOG) 1 VIAL SQ SCH ×3 (11:32→21:47)
[2016-08-25] MEDS ORDERED: SODIUM POLYSTYRENE SULFONATE 15 GM/60 ML BOTTLE ONE (11:34)
--- NOTE | 2016-08-25 12:06 | PN ---
Progress Note (short form) - Note Progress Note: s: no cp sob palps dizzy; abd pain better; reports loose bm's today o: Vital Signs Period Temp Pulse Resp BP Sys/Pearson Pulse Ox Last 24 Hr 97.6 F-98.2 F 54-55 18-20 144-162/78-91 99 Nad, calm jvd flat, neck supple ctab, nl effort rrr nl s1, s2 no mrg + bs soft nt nd ext without e/c/c aaox 3 Current Medications Generic Name Dose Route Start Last Admin Trade Name Freq PRN Reason Stop Dose Admin Al Hydroxide/Mg Hydroxide 30 ml 08/23/16 14:54 08/24/16 22:27 Mylanta Oral Suspension - PO 30 ml Q6H PRN Administration DYSPEPSIA Amiodarone HCl 200 mg 08/25/16 11:58 Cordarone - PO DAILY MATTHEW Atorvastatin Calcium 40 mg 08/23/16 22:00 08/24/16 22:23 Lipitor - PO 40 mg HS MATTHEW Administration Carvedilol 3.125 mg 08/24/16 10:00 08/25/16 09:38 Coreg - PO 3.125 mg BID MATTHEW Administration Clonidine 0.1 mg 08/24/16 10:00 08/25/16 09:39 Catapres - PO 0.1 mg DAILY MATTHEW Administration Heparin Sodium (Porcine) 5,000 unit 08/23/16 22:00 08/25/16 06:20 Heparin - SQ 5,000 unit TID MATTHEW Administration Insulin Aspart 1 vial 08/25/16 11:00 08/25/16 11:32 Novolog Vial Sliding Scale - SQ 2 units ACHS MATTHEW Administration Protocol Insulin Detemir 15 units 08/23/16 22:00 08/24/16 22:23 Levemir Vial SQ 15 units HS MATTHEW Administration Levothyroxine Sodium 88 mcg 08/24/16 07:00 08/25/16 09:38 Synthroid - PO 88 mcg DAILY@0700 MATTHEW Administration Pyridostigmine [place] 60 mg 08/23/16 22:00 08/25/16 10:04 Mestinon - PO 60 mg BID MATTHEW Administration Ranitidine HCl 150 mg 08/26/16 10:00 Zantac - PO DAILY MATTHEW Simethicone 80 mg 08/25/16 11:11 Mylicon - PO QID PRN GAS Sodium Chloride 1 gm 08/24/16 13:00 08/25/16 10:04 Sodium Chloride Tablet - PO 1 gm DAILY MATTHEW Administration CBC, BMP 08/25/16 05:35 08/25/16 05:35 EKG here: SB with av delay, prolonged qt, biphasic t waves in v3, v4. tele: SB 50's EKG on last admission from last week. Initially biphasic t waves in precordial leads --> development of associated deep TWI --> deep twi spread to limb leads. --> slow resolution Echo at last admit ([facility]): mod reduced lv fn. with mod apical AK. nl rv. nl valves. per report: cath last week, nl cors. CXR: minimal platelike atelectasis adjacent to left heart border Echo 03/2013: normal LV/RV function, impaired relaxation, mild TR, RVSP 35-40 a/p: 66 yo with h/o hypertension, diabetes mellitus, hyperlipidemia (diet controlled), CKD myasthenia gravis s/p thymectomy, hypothyroid, recent admission for takatsubo cardiomyopathy (denies preceding stressor) complicated by VT (with life vest) who presents to the emergency department with daughter for persistent epigastric pain. epigastric pain - symptoms may be causing increased vagal tone and further suppression of heart rate/symptomatic bradycardia (resulting in associated diaphoresis, dizziness), would monitor on tele. Unlikely to be from ventricular arrhythmia since he had sx's while being on telemetry monitoring during hospitalization last week at [facility]. Nl cors last week on cath makes angina very unlikely. Appears euvolemic with recent normal RV, right sided congestion seems to be less likely etiology for symptoms. -abd us w/o etiology -?related to amio loading, sxs have improved now as amio reduced -reports loose bm's today as well takatsubo cardiomyopathy/VT/bradycardia - on life vest - continue amio, coreg, losartan. holding aldactone due to hyponatremia. decreased dose of carvedilol in case bradycardia contributing to sx's of dizziness, diaphoresis as mentioned above. Additionally weaning clonidine - currently appears euvolemic prolonged qt - qt shortening in comparison to last admit. con't to monitor. Avoid qt prolonging drugs. HTN - hx of labile bp, cont current meds hyponatremia - per renal. Treatment of thyroid abnormalities per pmd.
--- NOTE | 2016-08-25 15:04 | PN ---
Progress Note (short form) - Note Progress Note: Renal Follow up for Hyponatremia and CKD Pt seen and examined at the bedside denies any abd pain today no sob, chest pain, DANIELLE, confusion, lethargy or weakness denies drinking a lot of water good urine output Vital Signs Temperature 98.1 F 08/24/16 10:00 Pulse Rate 52 L 08/24/16 10:00 Respiratory Rate 20 08/24/16 10:00 Blood Pressure 144/80 08/24/16 10:00 O2 Sat by Pulse Oximetry (%) 99 08/23/16 19:00 Intake & Output 08/21/16 08/22/16 08/23/16 08/24/16 23:59 23:59 23:59 23:59 Intake Total 200 Balance 200 Weight 145 lb 138 lb Gen: NAD, awake and alert CVS: RRR, No M/R Lungs: CTA, no rales or wheeze Abd: soft NT/ND Ext: No edema, clubbing or cyanosis CBC, BMP 08/24/16 05:58 08/24/16 05:58 Current Medications Al Hydroxide/Mg Hydroxide (Mylanta Oral Suspension -) 30 ml PO Q6H PRN PRN Reason: DYSPEPSIA Last Admin: 08/24/16 10:01 Dose: 30 ml Amiodarone HCl (Cordarone -) 400 mg PO DAILY [facility] Last Admin: 08/24/16 10:01 Dose: 400 mg Atorvastatin Calcium (Lipitor -) 40 mg PO HS [facility] Last Admin: 08/23/16 21:32 Dose: 40 mg Carvedilol (Coreg -) 3.125 mg PO BID [facility] Last Admin: 08/24/16 10:02 Dose: Not Given Clonidine (Catapres -) 0.1 mg PO DAILY [facility] Last Admin: 08/24/16 10:01 Dose: 0.1 mg Heparin Sodium (Porcine) (Heparin -) 5,000 unit SQ TID [facility] Last Admin: 08/24/16 06:55 Dose: 5,000 unit Pantoprazole Sodium (Protonix 40mg Ivpb (Pre-Docked)) 100 mls @ 200 mls/hr IVPB DAILY [facility] Last Admin: 08/24/16 10:15 Dose: 200 mls/hr Insulin Detemir (Levemir Vial) 15 units SQ [facility] Last Admin: 08/23/16 21:38 Dose: 15 units Levothyroxine Sodium (Synthroid -) 88 mcg PO DAILY@0700 [facility] Last Admin: 08/24/16 06:55 Dose: 88 mcg Pyridostigmine [place] (Mestinon -) 60 mg PO BID [facility] Last Admin: 08/24/16 10:15 Dose: 60 mg A/P 66 year old Gentleman with PMhx of CKD Stage 4 (baseline Cr 2.4),Myasthenia Gravis s/p thymectomy, Hypothyrodism, DM Type 2, Hyperlipidemia, Hypertension who presented to the ED with complaints of epigastric pain and found to have BUN /Cr of 24/2.8 and Na of 124. #Hypo-osmolar Hyponatremia Serum Na improving with Salt tabs however Na remains below normal if Serum Na without signifincat improvement by tomorrow can consider addition of loop diuretic or Tolvaptan Trend Na daily fluid restriction of 1L daily #Worsening Renal function in setting of CKD Stage 4 Renal function worse then baseline but stable no hypovolemia/hypotension/current nephrotoxic meds trend renal function for now avoid DIEGO/ARB/NSAIDs for the time being no further contrast exposure #Renal Mass Was seen on Prior studies pt has seen urolgoy in the past agree with MRI and urology follow up based on findings. #Epigastric Pain now resolved #Hypertension continue Coreg, Clonidoine #CAD r/o ACS/Cardiomyopathy/V-tach Life vest in place continue anti-arrythmics as per cardiology Thank you Damon Odell DO
[2016-08-25 17:59] LABS: CALCIUM 8.3 mg/dL (8.5-10.1); COCKROFT - GAULT 20.37; CREATININE 3.2 mg/dL (0.7-1.3)
[2016-08-25] MEDS: ATORVASTATIN CA 40 MG TABLET (FP) PO SCH (21:46)
[2016-08-25] MEDS: INSULIN DETEMIR 100 UNITS/ML MDV SQ SCH (21:54)
[2016-08-26] MEDS: MAG HYDROX/AL HYDROX/SIMETH 30 ML UNIT-DOSE CUP PO PRN (04:21)
[2016-08-26] MEDS: LEVOTHYROXINE NA 88 MCG TABLET (FP) PO SCH (06:29)
[2016-08-26] MEDS: HEPARIN NA (PORCINE) 5,000 UNITS/ML 1ML VIAL SQ SCH ×3 (06:29→21:42)
[2016-08-26] MEDS: INSULIN SLIDING SCALE (NOVOLOG) 1 VIAL SQ SCH ×4 (06:29→21:44)
--- NOTE | 2016-08-26 08:39 | PN ---
Progress Note, Physician Chief Complaint: abd pain History of Present Illness: abd pain comes and goes, much milder now--none today denies cp, sob, palpitations no cigs - Current Medication List Current Medications: Active Medications Al Hydroxide/Mg Hydroxide (Mylanta Oral Suspension -) 30 ml PO Q6H PRN PRN Reason: DYSPEPSIA Last Admin: 08/26/16 04:21 Dose: 30 ml Amiodarone HCl (Cordarone -) 200 mg PO DAILY [facility] Atorvastatin Calcium (Lipitor -) 40 mg PO HS [facility] Last Admin: 08/25/16 21:46 Dose: 40 mg Carvedilol (Coreg -) 3.125 mg PO BID [facility] Last Admin: 08/25/16 21:46 Dose: 3.125 mg Clonidine (Catapres -) 0.1 mg PO DAILY [facility] Last Admin: 08/25/16 09:39 Dose: 0.1 mg Heparin Sodium (Porcine) (Heparin -) 5,000 unit SQ TID [facility] Last Admin: 08/26/16 06:29 Dose: 5,000 unit Insulin Aspart (Novolog Vial Sliding Scale -) 1 vial SQ ACHS [facility] PRN Reason: Protocol Last Admin: 08/26/16 06:29 Dose: Not Given Insulin Detemir (Levemir Vial) 15 units SQ HS [facility] Last Admin: 08/25/16 21:54 Dose: 15 units Levothyroxine Sodium (Synthroid -) 88 mcg PO DAILY@0700 [facility] Last Admin: 08/26/16 06:29 Dose: 88 mcg Pyridostigmine [place] (Mestinon -) 60 mg PO BID [facility] Last Admin: 08/25/16 21:47 Dose: 60 mg Ranitidine HCl (Zantac -) 150 mg PO DAILY [facility] Simethicone (Mylicon -) 80 mg PO QID PRN PRN Reason: GAS Sodium Chloride (Sodium Chloride Tablet -) 1 gm PO DAILY [facility] Last Admin: 08/25/16 10:04 Dose: 1 gm - Objective Vital Signs: Vital Signs Temperature 98.2 F 08/26/16 06:00 Pulse Rate 56 L 08/26/16 06:00 Respiratory Rate 18 08/26/16 06:00 Blood Pressure 157/78 08/26/16 06:00 O2 Sat by Pulse Oximetry (%) 98 08/25/16 10:00 Constitutional: Yes: No Distress, Calm Eyes: No: Sclera Icterus HENT: No: Nasal Congestion Cardiovascular: Yes: Regular Rate and Rhythm, S1, S2, Other (PMI non diplaced). No: JVD (in chair), Gallop, Murmur Respiratory: Yes: CTA Bilaterally. No: Accessory Muscle Use, Rales, Wheezes Gastrointestinal: Yes: Normal Bowel Sounds, Soft Musculoskeletal: Yes: Other (No kyphosis) Extremities: No: Cold, Cyanosis Edema: No Integumentary: No: Jaundice Neurological: Yes: Alert, Oriented (x3) Psychiatric: No: Agitated Labs: CBC, BMP 08/25/16 05:35 INR, PTT INR 0.97 (0.82-1.09) 08/23/16 10:25 - ....Imaging EKG: Other (tele: NSR) Assessment/Plan Echo at last admit ([facility]): mod reduced lv fn. with mod apical AK. nl rv. nl valves. per report: cath last week, nl cors. CXR: minimal platelike atelectasis adjacent to left heart border Echo 03/2013: normal LV/RV function, impaired relaxation, mild TR, RVSP 35-40 a/p: 66 yo with h/o hypertension, diabetes mellitus, hyperlipidemia (diet controlled), CKD myasthenia gravis s/p thymectomy, hypothyroid, recent admission for takatsubo cardiomyopathy (denies preceding stressor) complicated by VT (with life vest) who presents to the emergency department with daughter for persistent epigastric pain. epigastric pain -sx's began while in [facility] recently (pain, constant gas/bloated/belching) -worsened pain at home, gm about 1-2 hours after eating or taking pills per pt , comes and goes during day--RELIEVED BY FOOD -rx'd PPI in [facility] for this -w/u of abd sx's per hospitalist, +/- GI consult if felt indicated -UNLIKELY THESE SX'S ARE DUE TO AMIO: while amio can cause GI sx's, it is highly unusual to lead to gas/belching--however not impossible and ? improving b /c of taper of amio dose -AMIO NOT TO BE STOPPED IN THIS PT HI RISK FOR RECURRENT VT--IF NO OTHER ETIOLOGY FOUND FOR GI SX'S AND THEY PERSIST, PT WILL NEED TO BE SEEN BY [facility] EP TO WEIGH IN ON AMIO DECISIONS takatsubo cardiomyopathy/VT - recent admit [facility] for chest pain and VT, echo with new cardiomyopathy, EF 35% . - cath wthen negative for CAD, dx'd takastubo cardiomyopathy - seen by EP there, sent home with life vest and on amiodarone load. - cont carvedilol (decreased dose due to noted bradycardia here) - ARB and spironolactone held given stage IV ckd, hyponatremia - cont amio - f/u with EP at [facility] after discharge (pt confirms appt scheduled next month) - clinically euvolemic--no lasix sinus agatha - hx very suggestive this is vagal sec to abd pain episodes (pain is associated with dizziness, diaphoresis, facial flushing) - decr'd coreg and clonidine - cont tele monitoring prolonged qt - ok to cont amio as long as QT remains <500-510 (otherwise will need EP input) - upon dr orozco review of [facility] ecg, qt is currently shorter - cont to monitor ecg as amio tapered - maintain K and Mag repleted (per usual targets) HTN - hx of labile bp - clonidine and coreg decreased here due to noted agatha, ? causing dizzy sx's - ARB and spirono on hold, as above - bp's 140s-160s here - cont same meds, observe trend hyponatremia - mgmt per renal - thyroid optimization per pmd THAO on CKD: -renal and following
[2016-08-26] MEDS ORDERED: PT OWN MED DRAWER 7, Y5N ONE (09:49)
[2016-08-26] MEDS: RANITIDINE HCL 150 MG TABLET (FP) PO SCH (10:06)
[2016-08-26] MEDS: CARVEDILOL 3.125 MG TABLET (FP) PO SCH ×2 (10:06→21:42)
[2016-08-26] MEDS: SODIUM CHLORIDE 1 GM TABLET PO SCH (10:06)
[2016-08-26] MEDS: cloNIDine HCL 0.1 MG TABLET PO SCH (10:06)
[2016-08-26] MEDS: PYRIDOSTIGMINE BROMIDE 60 MG TABLET PO SCH ×2 (10:06→21:42)
[2016-08-26] MEDS: AMIODARONE HCL 200 MG TABLET (FP) PO SCH (10:06)
--- NOTE | 2016-08-26 10:35 | PN ---
Progress Note (short form) - Note Progress Note: c/o constipatin. last BM several days ago. also c/o feeling "hot in my head" denies dizzyness, SOB,chills, cough, CP, N/V, no epigastric pain Current Medications Generic Name Dose Route Start Last Admin Trade Name Freq PRN Reason Stop Dose Admin Al Hydroxide/Mg Hydroxide 30 ml 08/23/16 14:54 08/26/16 04:21 Mylanta Oral Suspension - PO 30 ml Q6H PRN Administration DYSPEPSIA Amiodarone HCl 200 mg 08/26/16 10:00 08/26/16 10:06 Cordarone - PO 200 mg DAILY MATTHEW Administration Atorvastatin Calcium 40 mg 08/23/16 22:00 08/25/16 21:46 Lipitor - PO 40 mg HS MATTHEW Administration Carvedilol 3.125 mg 08/24/16 10:00 08/26/16 10:06 Coreg - PO 3.125 mg BID MATTHEW Administration Clonidine 0.1 mg 08/24/16 10:00 08/26/16 10:06 Catapres - PO 0.1 mg DAILY MATTHEW Administration Heparin Sodium (Porcine) 5,000 unit 08/23/16 22:00 08/26/16 06:29 Heparin - SQ 5,000 unit TID MATTHEW Administration Insulin Aspart 1 vial 08/25/16 11:00 08/26/16 06:29 Novolog Vial Sliding Scale - SQ Not Given ACHS [facility] Protocol Insulin Detemir 15 units 08/23/16 22:00 08/25/16 21:54 Levemir Vial SQ 15 units HS MATTHEW Administration Levothyroxine Sodium 88 mcg 08/24/16 07:00 08/26/16 06:29 Synthroid - PO 88 mcg DAILY@0700 MATTHEW Administration Pyridostigmine [place] 60 mg 08/23/16 22:00 08/26/16 10:06 Mestinon - PO 60 mg BID MATTHEW Administration Ranitidine HCl 150 mg 08/26/16 10:00 08/26/16 10:06 Zantac - PO 150 mg DAILY MATTHEW Administration Simethicone 80 mg 08/25/16 11:11 Mylicon - PO QID PRN GAS Sodium Chloride 1 gm 08/24/16 13:00 08/26/16 10:06 Sodium Chloride Tablet - PO 1 gm DAILY MATTHEW Administration Last Vital Signs Temp Pulse Resp BP Pulse Ox 98.2 F 56 L 18 157/78 98 08/26/16 06:00 08/26/16 06:00 08/26/16 06:00 08/26/16 06:00 08/25/16 10:00 General NAD CV S1 S2 bradycardic no murmur/rub/gallop Lungs CTA B/L no wheezing/rales/rhonchi Abdomen soft NT/ND no rebound or guarding Extremities no pedal edema ASSESSMENT AND PLAN: 66yo M [facility] PM CAD, Vtach with life vest, DM and CKD and HTN presented to the ER and was admitted for further evaluation of their emergent condition 1. Atypical CP- continuous cardiac monitoring. remains bradycardic. amio dose decreased but received 400mg yesterday will see response of reduced dose today. cont low dose coreg. cardio on board. life vest for takatsubo cardiomyopathy/ VT. will need to follow up [facility] EP. 2. epigastric pain- now resolved. abdominal u/s showing renal mass that has been there since 2008. never had further workup was supposed to see urology. will obtain MRI without contrast due to renal function. consulted urology 3. Constipation- start colace, miralax. if no BM will need to give enema 4. Hyponatremia-awaiting labs today. will need to consider diuretic vs tolvaptan if no improvement. 1L water restriction. salt tabs. check labs BID 5. Acute on CKD- Cr baseline 2.5. likely contrast induced. nephrology on board. avoid nephrotoxic agents. hold ARB 6. HTN- spoke with cardio, goal SBP <150. monitor 7. Hypothyroid- likely sick euthyroid. TSH elevated however normal T4. will not adjust LT4 at this time. will need repeat TSH in 6 weeks. 8. DM- controlled. resume home dosing of lantus, iss, bgm 9. Hyperkalemia- likely in setting of THAO. s/p kayexylate. resolved 10. DVT ppx- hep sq Visit type - Emergency Visit Emergency Visit: Yes ED Registration Date: 08/23/16 Care time: The patient presented to the Emergency Department on the above date and was hospitalized for further evaluation of their emergent condition. - New Patient This patient is new to me today: No - Critical Care Critical Care patient: No - Discharge Referral Referred to [facility] Med P.C.: No
[2016-08-26 10:56] LABS: ALBUMIN 3.8 g/dl (3.4-5.0); BILIRUBIN,TOTAL 1.1 mg/dL (0.2-1.0); CALCIUM 8.5 mg/dL (8.5-10.1); COCKROFT - GAULT 20.99; TOT PROT 7.1 g/dl (6.4-8.2)
--- NOTE | 2016-08-26 11:14 | CON.GU ---
Consult - History of Present Illness History of Present Illness: 66 yo male, known to me with h/o minimally complex (bosniak 2) left renal cyst, last imaged with CT on 05/2016. Now admitted with epigastric pain. Has had some worsening of baseline renal insuffuciency. Recent renal sono again shows left renal lesion. No flank pain, No voiding complaints - Alcohol/Substance Use Hx Alcohol Use: No - Smoking History Smoking history: Never smoked Have you smoked in the past 12 months: No Aproximately how many cigarettes per day: 0 Home Medications - Allergies Allergies/Adverse Reactions: Allergies Allergy/AdvReac Type Severity Reaction Status Date / Time No Known Allergies Allergy Verified 08/23/16 09:59 - Home Medications Home Medications: Ambulatory Orders Clonidine HCl 0.1 mg PO BID 04/29/13 Insulin Glargine,Hum.rec.anlog [Lantus Solostar PEN -] 15 units SQ HS 04/29/13 Levothyroxine [Synthroid -] 88 mcg PO DAILY 04/29/13 Amiodarone HCl [Cordarone] 400 mg PO DAILY 08/23/16 Atorvastatin Ca [Lipitor] 40 mg PO HS 08/23/16 Carvedilol [Coreg -] 6.25 mg PO BID 08/23/16 Famotidine 20 mg PO DAILY 08/23/16 Losartan Potassium 25 mg PO DAILY 08/23/16 Pantoprazole Sodium 40 mg PO DAILY 08/23/16 Pyridostigmine [Mestinon] 60 mg PO BID 08/23/16 Spironolactone 60 mg PO DAILY 08/23/16 Physical Exam- Vital Signs: Vital Signs Temperature 98.2 F 08/26/16 06:00 Pulse Rate 56 L 08/26/16 06:00 Respiratory Rate 18 08/26/16 06:00 Blood Pressure 157/78 08/26/16 06:00 O2 Sat by Pulse Oximetry (%) 98 08/25/16 10:00 Renal/: Yes: WNL Labs: CBC, BMP 08/25/16 05:35 08/26/16 06:00 Imaging - Results Ultrasound: Report Reviewed Problem List - Problems (1) Renal cyst, acquired, left Assessment/Plan: agree with noncontrast MRI to assess stability of renal cyst Code(s): N28.1 - CYST OF KIDNEY, ACQUIRED
--- NOTE | 2016-08-26 11:34 | PN ---
Progress Note, Physician Chief Complaint: Patient seen by his bed. Still no relief to the abdominal pain. No chest pain, no shortness of breath. Life-vest in place. Scheduled for MRI today of the abdomen. History of Present Illness: Patient has h/o CAD, recent admission to [facility] with Chest pains, Myasthenia gravis, Hypertension, Hypontremia - Current Medication List Current Medications: Active Medications Al Hydroxide/Mg Hydroxide (Mylanta Oral Suspension -) 30 ml PO Q6H PRN PRN Reason: DYSPEPSIA Last Admin: 08/26/16 04:21 Dose: 30 ml Amiodarone HCl (Cordarone -) 200 mg PO DAILY [facility] Last Admin: 08/26/16 10:06 Dose: 200 mg Atorvastatin Calcium (Lipitor -) 40 mg PO HS [facility] Last Admin: 08/25/16 21:46 Dose: 40 mg Carvedilol (Coreg -) 3.125 mg PO BID [facility] Last Admin: 08/26/16 10:06 Dose: 3.125 mg Clonidine (Catapres -) 0.1 mg PO DAILY [facility] Last Admin: 08/26/16 10:06 Dose: 0.1 mg Heparin Sodium (Porcine) (Heparin -) 5,000 unit SQ TID [facility] Last Admin: 08/26/16 06:29 Dose: 5,000 unit Insulin Aspart (Novolog Vial Sliding Scale -) 1 vial SQ ACHS [facility] PRN Reason: Protocol Last Admin: 08/26/16 06:29 Dose: Not Given Insulin Detemir (Levemir Vial) 15 units SQ HS [facility] Last Admin: 08/25/16 21:54 Dose: 15 units Levothyroxine Sodium (Synthroid -) 88 mcg PO DAILY@0700 [facility] Last Admin: 08/26/16 06:29 Dose: 88 mcg Polyethylene Glycol (Miralax (For Daily Use) -) 17 gm PO DAILY [facility] Pyridostigmine [place] (Mestinon -) 60 mg PO BID [facility] Last Admin: 08/26/16 10:06 Dose: 60 mg Ranitidine HCl (Zantac -) 150 mg PO DAILY [facility] Last Admin: 08/26/16 10:06 Dose: 150 mg Simethicone (Mylicon -) 80 mg PO QID PRN PRN Reason: GAS Sodium Chloride (Sodium Chloride Tablet -) 1 gm PO DAILY [facility] Last Admin: 08/26/16 10:06 Dose: 1 gm Tolvaptan (Samsca (Restricted To Nephrology/Cardiology)) 7.5 mg PO DAILY MATTHEW - Objective Vital Signs: Vital Signs Temperature 98.2 F 08/26/16 06:00 Pulse Rate 56 L 08/26/16 06:00 Respiratory Rate 18 08/26/16 06:00 Blood Pressure 157/78 08/26/16 06:00 O2 Sat by Pulse Oximetry (%) 98 08/25/16 10:00 Constitutional: Yes: Anxious, Mild Distress Eyes: Yes: WNL, Conjunctiva Clear Neck: Yes: Supple Cardiovascular: Yes: Regular Rate and Rhythm, S1, S2, Other (Life vest in place) Respiratory: Yes: WNL, Regular, CTA Bilaterally Gastrointestinal: Yes: WNL, Normal Bowel Sounds, Soft Musculoskeletal: Yes: WNL Neurological: Yes: WNL, Alert, Oriented ...Motor Strength: WNL Labs: CBC, BMP 08/25/16 05:35 08/26/16 06:00 INR, PTT INR 0.97 (0.82-1.09) 08/23/16 10:25 Problem List - Problems (1) EKG abnormalities Code(s): R94.31 - ABNORMAL ELECTROCARDIOGRAM [ECG] [EKG] (2) Hyponatremia Code(s): E87.1 - HYPO-OSMOLALITY AND HYPONATREMIA (3) Myasthenia Code(s): G70.00 - MYASTHENIA GRAVIS WITHOUT (ACUTE) EXACERBATION (4) Hypertension Code(s): I10 - ESSENTIAL (PRIMARY) HYPERTENSION (5) Renal mass Code(s): N28.89 - OTHER SPECIFIED DISORDERS OF KIDNEY AND URETER (6) Chronic kidney disease, stage 4 (severe) Code(s): N18.4 - CHRONIC KIDNEY DISEASE, STAGE 4 (SEVERE) (7) Acute abdominal pain Code(s): R10.9 - UNSPECIFIED ABDOMINAL PAIN Assessment/Plan 66 y/o male with Myasthenia gravis, Coronary artery disease, Hypertension, ahs now unexplained abdominal pain. Constipated since yesterday. Hyponatremia persists, seems euvolemiac. Has a Renal mass, seen first in a CT scan image in May 2016. HKnown to services. Plan: Will get MRI of the abdomen with NO KISHORE. Will start on low dose Samsca ( Tolvaptan) in view of the persistent Hyponatremia. Thanks again. Will follow up with you. Shaylee Finnegan MD
[2016-08-26] MEDS ORDERED: SODIUM POLYSTYRENE SULFONATE 15 GM/60 ML BOTTLE PO ONE (12:56)
[2016-08-26] MEDS: POLYETHYLENE GLYCOL 3350 119 GM BTL PO SCH (12:59)
[2016-08-26] MEDS: TOLVAPTAN 15 MG TABLET PO SCH (13:58)
[2016-08-26] MEDS ORDERED: SODIUM POLYSTYRENE SULFONATE 15 GM/60 ML BOTTLE ONE (15:11)
[2016-08-26] MEDS: ATORVASTATIN CA 40 MG TABLET (FP) PO SCH (21:42)
[2016-08-26] MEDS: INSULIN DETEMIR 100 UNITS/ML MDV SQ SCH (21:44)
[2016-08-27] MEDS: MAG HYDROX/AL HYDROX/SIMETH 30 ML UNIT-DOSE CUP PO PRN (02:59)
[2016-08-27] MEDS: LEVOTHYROXINE NA 88 MCG TABLET (FP) PO SCH (06:17)
[2016-08-27] MEDS: INSULIN SLIDING SCALE (NOVOLOG) 1 VIAL SQ SCH ×4 (06:18→21:58)
[2016-08-27] MEDS: HEPARIN NA (PORCINE) 5,000 UNITS/ML 1ML VIAL SQ SCH ×3 (06:18→21:46)
--- NOTE | 2016-08-27 07:50 | PN ---
Progress Note, Physician Chief Complaint: abd pain History of Present Illness: no more abd pain; only c/o is constipation x 2d no cp, sob, palpit - Current Medication List Current Medications: Active Medications Al Hydroxide/Mg Hydroxide (Mylanta Oral Suspension -) 30 ml PO Q6H PRN PRN Reason: DYSPEPSIA Last Admin: 08/27/16 02:59 Dose: 30 ml Amiodarone HCl (Cordarone -) 200 mg PO DAILY [facility] Last Admin: 08/26/16 10:06 Dose: 200 mg Atorvastatin Calcium (Lipitor -) 40 mg PO HS [facility] Last Admin: 08/26/16 21:42 Dose: 40 mg Carvedilol (Coreg -) 3.125 mg PO BID [facility] Last Admin: 08/26/16 21:42 Dose: 3.125 mg Clonidine (Catapres -) 0.1 mg PO DAILY [facility] Last Admin: 08/26/16 10:06 Dose: 0.1 mg Heparin Sodium (Porcine) (Heparin -) 5,000 unit SQ TID [facility] Last Admin: 08/27/16 06:18 Dose: Not Given Insulin Aspart (Novolog Vial Sliding Scale -) 1 vial SQ [facility] PRN Reason: Protocol Last Admin: 08/27/16 06:18 Dose: Not Given Insulin Detemir (Levemir Vial) 15 units SQ HS [facility] Last Admin: 08/26/16 21:44 Dose: 15 units Levothyroxine Sodium (Synthroid -) 88 mcg PO DAILY@0700 [facility] Last Admin: 08/27/16 06:17 Dose: 88 mcg Polyethylene Glycol (Miralax (For Daily Use) -) 17 gm PO DAILY [facility] Last Admin: 08/26/16 12:59 Dose: 17 grams Pyridostigmine [place] (Mestinon -) 60 mg PO BID [facility] Last Admin: 08/26/16 21:42 Dose: 60 mg Ranitidine HCl (Zantac -) 150 mg PO DAILY [facility] Last Admin: 08/26/16 10:06 Dose: 150 mg Simethicone (Mylicon -) 80 mg PO QID PRN PRN Reason: GAS Sodium Chloride (Sodium Chloride Tablet -) 1 gm PO DAILY [facility] Last Admin: 08/26/16 10:06 Dose: 1 gm Tolvaptan (Samsca (Restricted To Nephrology/Cardiology)) 7.5 mg PO DAILY [facility] Last Admin: 08/26/16 13:58 Dose: 7.5 mg - Objective Vital Signs: Vital Signs Temperature 98.4 F 08/27/16 05:21 Pulse Rate 56 L 08/27/16 05:21 Respiratory Rate 20 08/27/16 05:21 Blood Pressure 137/82 08/27/16 05:21 O2 Sat by Pulse Oximetry (%) 99 08/26/16 09:00 Constitutional: Yes: Well Nourished, No Distress, Calm Cardiovascular: Yes: Regular Rate and Rhythm, S1, S2. No: Gallop, Murmur Respiratory: Yes: Regular, CTA Bilaterally. No: Accessory Muscle Use, Rales, Wheezes Extremities: No: Cold Edema: No Neurological: Yes: Alert, Oriented Psychiatric: No: Agitated Labs: CBC, BMP 08/25/16 05:35 08/26/16 06:00 INR, PTT INR 0.97 (0.82-1.09) 08/23/16 10:25 - ....Imaging EKG: Other (tele: NSR, no VT) Assessment/Plan Echo at last admit ([facility]): mod reduced lv fn. with mod apical AK. nl rv. nl valves. per report: cath last week, nl cors. CXR: minimal platelike atelectasis adjacent to left heart border Echo 03/2013: normal LV/RV function, impaired relaxation, mild TR, RVSP 35-40 a/p: 66 yo with h/o hypertension, diabetes mellitus, hyperlipidemia (diet controlled), CKD myasthenia gravis s/p thymectomy, hypothyroid, recent admission for takatsubo cardiomyopathy (denies preceding stressor) complicated by VT (with life vest) who presents to the emergency department with daughter for persistent epigastric pain. epigastric pain -sx's began while in [place] recently (pain, constant gas/bloated/belching) -worsened pain at home, gm about 1-2 hours after eating or taking pills per pt , comes and goes during day--RELIEVED BY FOOD -rx'd PPI in [place] for this -w/u of abd sx's per hospitalist, +/- GI consult if felt indicated -UNLIKELY THESE SX'S ARE DUE TO AMIO: while amio can cause GI sx's, it is highly unusual to lead to gas/belching--however not impossible and ? improving b /c of taper of amio dose -AMIO NOT TO BE STOPPED IN THIS PT HI RISK FOR RECURRENT VT--IF NO OTHER ETIOLOGY FOUND FOR GI SX'S AND THEY PERSIST, PT WILL NEED TO BE SEEN BY [facility] EP TO WEIGH IN ON AMIO DECISIONS -tx of constipation per hospitalist -sx's remain much improved/resolved takatsubo cardiomyopathy/VT - recent admit [facility] for chest pain and VT, echo with new cardiomyopathy, EF 35% . - cath wthen negative for CAD, dx'd takastubo cardiomyopathy - seen by EP there, sent home with life vest and on amiodarone load. - cont carvedilol (decreased dose due to noted bradycardia here) - ARB and spironolactone held given stage IV ckd, hyponatremia - cont amio - f/u with EP at [place] [place] after discharge (pt confirms appt scheduled next month) - clinically euvolemic--no lasix sinus agatha - hx very suggestive this is vagal sec to abd pain episodes (pain is associated with dizziness, diaphoresis, facial flushing) - decr'd coreg and clonidine - cont tele monitoring prolonged qt - ok to cont amio as long as QT remains <500-510 (otherwise will need EP input) - upon dr orozco review of [place] ecg, qt is currently shorter - cont to monitor ecg as amio tapered - maintain K and Mag repleted (per usual targets) HTN - hx of labile bp - clonidine and coreg decreased here due to noted agatha, ? causing dizzy sx's - ARB and spirono on hold, as above - 08/27: bp's up this am 170s--start amlodipine 5mg qd hyponatremia - mgmt per renal - thyroid optimization per pmd THAO on CKD: -renal and following
[2016-08-27] MEDS ORDERED: PT OWN MED DRAWER 7, Y5N ONE (08:28)
[2016-08-27] MEDS: cloNIDine HCL 0.1 MG TABLET PO SCH (08:30)
[2016-08-27] MEDS: amLODIPine BESYLATE 5 MG TABLET (FP) PO SCH (08:31)
[2016-08-27] MEDS: CARVEDILOL 3.125 MG TABLET (FP) PO SCH ×2 (08:32→21:41)
[2016-08-27 08:40] LABS: CALCIUM 9.1 mg/dL (8.5-10.1); COCKROFT - GAULT 19.3; CREATININE 3.2 mg/dL (0.7-1.3)
--- NOTE | 2016-08-27 09:57 | PN ---
Progress Note (short form) - Note Progress Note: c/o constipation. denies dizzyness, SOB,chills, cough, CP, N/V, no epigastric pain. DANIELLE resolved. Current Medications Generic Name Dose Route Start Last Admin Trade Name Freq PRN Reason Stop Dose Admin Al Hydroxide/Mg Hydroxide 30 ml 08/23/16 14:54 08/27/16 02:59 Mylanta Oral Suspension - PO 30 ml Q6H PRN Administration DYSPEPSIA Amiodarone HCl 200 mg 08/26/16 10:00 08/26/16 10:06 Cordarone - PO 200 mg DAILY MATTHEW Administration Amlodipine [place] 5 mg 08/27/16 10:00 08/27/16 08:31 Norvasc - PO 5 mg DAILY MATTHEW Administration Atorvastatin Calcium 40 mg 08/23/16 22:00 08/26/16 21:42 Lipitor - PO 40 mg HS MATTHEW Administration Carvedilol 3.125 mg 08/24/16 10:00 08/27/16 08:32 Coreg - PO 3.125 mg BID MATTHEW Administration Clonidine 0.1 mg 08/24/16 10:00 08/27/16 08:30 Catapres - PO 0.1 mg DAILY [facility] Administration Heparin Sodium (Porcine) 5,000 unit 08/23/16 22:00 08/27/16 06:18 Heparin - SQ Not Given TID [facility] Insulin Aspart 1 vial 08/25/16 11:00 08/27/16 06:18 Novolog Vial Sliding Scale - SQ Not Given ACHS [facility] Protocol Insulin Detemir 15 units 08/23/16 22:00 08/26/16 21:44 Levemir Vial SQ 15 units HS [facility] Administration Levothyroxine Sodium 88 mcg 08/24/16 07:00 08/27/16 06:17 Synthroid - PO 88 mcg DAILY@0700 MATTHEW Administration Polyethylene Glycol 17 gm 08/26/16 11:00 08/26/16 12:59 Miralax (For Daily Use) - PO 17 grams DAILY [facility] Administration Pyridostigmine [place] 60 mg 08/23/16 22:00 08/26/16 21:42 Mestinon - PO 60 mg BID MATTHEW Administration Ranitidine HCl 150 mg 08/26/16 10:00 08/26/16 10:06 Zantac - PO 150 mg DAILY MATTHEW Administration Simethicone 80 mg 08/25/16 11:11 Mylicon - PO QID PRN GAS Sodium Chloride 1 gm 08/24/16 13:00 08/26/16 10:06 Sodium Chloride Tablet - PO 1 gm DAILY MATTHEW Administration Tolvaptan 7.5 mg 08/26/16 12:15 08/26/16 13:58 Samsca (Restricted To Nephrology/Cardiology) PO 7.5 mg DAILY MATTHEW Administration Last Vital Signs Temp Pulse Resp BP Pulse Ox 97.8 F 68 18 188/100 99 08/27/16 08:05 08/27/16 08:05 08/27/16 08:05 08/27/16 08:05 08/26/16 09:00 General NAD CV S1 S2 bradycardic no murmur/rub/gallop Lungs CTA B/L no wheezing/rales/rhonchi Abdomen soft NT/ND no rebound or guarding Extremities no pedal edema CBCD WBC 9.8 K/mm3 (4.0-10.0) 08/25/16 05:35 RBC 4.27 M/mm3 (4.00-5.60) 08/25/16 05:35 Hgb 12.7 GM/dL (11.7-16.9) 08/25/16 05:35 Hct 36.2 % (35.4-49) 08/25/16 05:35 MCV 84.6 fl (80-96) 08/25/16 05:35 MCHC 35.2 g/dl (32.0-35.9) 08/25/16 05:35 RDW 13.3 % (11.9-15.9) 08/25/16 05:35 Plt Count 250 K/MM3 (134-434) 08/25/16 05:35 MPV 9.5 fl (7.5-11.1) 08/25/16 05:35 CMP Sodium 133 mmol/L (136-145) L 08/27/16 06:00 Potassium 5.1 mmol/L (3.5-5.1) 08/27/16 06:00 Chloride 94 mmol/L (98-107) L 08/27/16 06:00 Carbon Dioxide 26 mmol/L (21-32) 08/27/16 06:00 Anion Gap 13 (8-16) 08/27/16 06:00 BUN 44 mg/dL (7-18) H 08/27/16 06:00 Creatinine 3.2 mg/dL (0.7-1.3) H 08/27/16 06:00 Creat Clearance w eGFR 21.11 (>60) 08/26/16 06:00 Calcium 9.1 mg/dL (8.5-10.1) 08/27/16 06:00 Total Bilirubin 1.1 mg/dL (0.2-1.0) H 08/26/16 06:00 AST 13 U/L (15-37) L D 08/26/16 06:00 ALT 30 U/L (12-78) 08/26/16 06:00 Alkaline Phosphatase 58 U/L (45-117) 08/26/16 06:00 Total Protein 7.1 g/dl (6.4-8.2) 08/26/16 06:00 Albumin 3.8 g/dl (3.4-5.0) 08/26/16 06:00 ASSESSMENT AND PLAN: 66yo M [facility] CAD, Vtach with life vest, DM and CKD and HTN presented to the ER and was admitted for further evaluation of their emergent condition 1. Atypical CP- continuous cardiac monitoring. remains bradycardic but stable. cont amio and coreg. cardio on board. life vest for takatsubo cardiomyopathy/ VT. will need to follow up [facility]. 2. epigastric pain- now resolved. abdominal u/s showing renal mass that has been there since 2008. never had further workup was supposed to see urology. will obtain MRI without contrast due to renal function. consulted urology 3. Constipation- start colace, miralax. refusing enema today. if no BM will need to give enema tomorrow 4. Hyponatremia-improved on tolvaptan. 1L water restriction. salt tabs. 5. Acute on CKD- Cr baseline 2.5. likely contrast induced. stabilized yesterday but now trending up, perhaps dehydration component from new medication. nephrology on board. avoid nephrotoxic agents. hold ARB 6. HTN-elevated today. started on norvasc 5mg. goal SBP <150. monitor 7. Hypothyroid- likely sick euthyroid. TSH elevated however normal T4. will not adjust LT4 at this time. will need repeat TSH in 6 weeks. 8. DM- controlled. resume home dosing of lantus, iss, bgm 9. Hyperkalemia-resolved. 10. DVT ppx- hep sq Visit type - Emergency Visit Emergency Visit: Yes ED Registration Date: 08/23/16 Care time: The patient presented to the Emergency Department on the above date and was hospitalized for further evaluation of their emergent condition. - New Patient This patient is new to me today: No - Critical Care Critical Care patient: No - Discharge Referral Referred to [facility] Med P.C.: No
[2016-08-27] MEDS: PYRIDOSTIGMINE BROMIDE 60 MG TABLET PO SCH ×2 (10:09→21:57)
[2016-08-27] MEDS: RANITIDINE HCL 150 MG TABLET (FP) PO SCH (10:09)
[2016-08-27] MEDS: TOLVAPTAN 15 MG TABLET PO SCH (10:09)
[2016-08-27] MEDS: AMIODARONE HCL 200 MG TABLET (FP) PO SCH (10:09)
[2016-08-27] MEDS: SODIUM CHLORIDE 1 GM TABLET PO SCH (10:09)
[2016-08-27] MEDS: POLYETHYLENE GLYCOL 3350 119 GM BTL PO SCH (10:14)
--- NOTE | 2016-08-27 16:05 | PN ---
Progress Note, Physician Chief Complaint: Patient sitting on a chair. by him. maintains good urine output. No chest pain. Had a small BM today. Awaiting the results of the MRI. - Current Medication List Current Medications: Active Medications Al Hydroxide/Mg Hydroxide (Mylanta Oral Suspension -) 30 ml PO Q6H PRN PRN Reason: DYSPEPSIA Last Admin: 08/27/16 02:59 Dose: 30 ml Amiodarone HCl (Cordarone -) 200 mg PO DAILY [facility] Last Admin: 08/27/16 10:09 Dose: 200 mg Amlodipine Besylate (Norvasc -) 5 mg PO DAILY [facility] Last Admin: 08/27/16 08:31 Dose: 5 mg Atorvastatin Calcium (Lipitor -) 40 mg PO HS [facility] Last Admin: 08/26/16 21:42 Dose: 40 mg Carvedilol (Coreg -) 3.125 mg PO BID [facility] Last Admin: 08/27/16 08:32 Dose: 3.125 mg Clonidine (Catapres -) 0.1 mg PO DAILY [facility] Last Admin: 08/27/16 08:30 Dose: 0.1 mg Heparin Sodium (Porcine) (Heparin -) 5,000 unit SQ TID [facility] Last Admin: 08/27/16 14:51 Dose: 5,000 unit Insulin Aspart (Novolog Vial Sliding Scale -) 1 vial SQ ACHS [facility] PRN Reason: Protocol Last Admin: 08/27/16 12:00 Dose: Not Given Insulin Detemir (Levemir Vial) 15 units SQ HS [facility] Last Admin: 08/26/16 21:44 Dose: 15 units Levothyroxine Sodium (Synthroid -) 88 mcg PO DAILY@0700 [facility] Last Admin: 08/27/16 06:17 Dose: 88 mcg Polyethylene Glycol (Miralax (For Daily Use) -) 17 gm PO DAILY [facility] Last Admin: 08/26/16 12:59 Dose: 17 grams Pyridostigmine [place] (Mestinon -) 60 mg PO BID [facility] Last Admin: 08/27/16 10:09 Dose: 60 mg Ranitidine HCl (Zantac -) 150 mg PO DAILY [facility] Last Admin: 08/27/16 10:09 Dose: 150 mg Simethicone (Mylicon -) 80 mg PO QID PRN PRN Reason: GAS Sodium Chloride (Sodium Chloride Tablet -) 1 gm PO DAILY [facility] Last Admin: 08/27/16 10:09 Dose: 1 gm Tolvaptan (Samsca (Restricted To Nephrology/Cardiology)) 7.5 mg PO DAILY [facility] Last Admin: 08/27/16 10:09 Dose: 7.5 mg - Objective Vital Signs: Vital Signs Temperature 99 F 08/27/16 14:00 Pulse Rate 61 08/27/16 14:00 Respiratory Rate 20 08/27/16 14:00 Blood Pressure 146/91 08/27/16 14:00 O2 Sat by Pulse Oximetry (%) 96 08/27/16 09:00 Constitutional: Yes: No Distress, Calm Eyes: Yes: WNL HENT: Yes: WNL Neck: Yes: WNL Cardiovascular: Yes: WNL, S1, S2 Respiratory: Yes: Regular, CTA Bilaterally Gastrointestinal: Yes: Normal Bowel Sounds, Soft, Distention Genitourinary: Yes: WNL Edema: No Labs: CBC, BMP 08/25/16 05:35 08/27/16 06:00 INR, PTT INR 0.97 (0.82-1.09) 08/23/16 10:25 Problem List - Problems (1) EKG abnormalities Code(s): R94.31 - ABNORMAL ELECTROCARDIOGRAM [ECG] [EKG] (2) Hyponatremia Code(s): E87.1 - HYPO-OSMOLALITY AND HYPONATREMIA (3) Myasthenia Code(s): G70.00 - MYASTHENIA GRAVIS WITHOUT (ACUTE) EXACERBATION (4) Hypertension Code(s): I10 - ESSENTIAL (PRIMARY) HYPERTENSION (5) Renal mass Code(s): N28.89 - OTHER SPECIFIED DISORDERS OF KIDNEY AND URETER (6) Chronic kidney disease, stage 4 (severe) Code(s): N18.4 - CHRONIC KIDNEY DISEASE, STAGE 4 (SEVERE) (7) Acute abdominal pain Code(s): R10.9 - UNSPECIFIED ABDOMINAL PAIN (8) Hyperkalemia Code(s): E87.5 - HYPERKALEMIA Assessment/Plan 66 y/o male with Myasthenia gravis, Coronary artery disease, Hypertension, The patient has a Renal mass. W/u in progress. The Serum Creatinine has worsened . (3.2) possibly tending to platau, before improvement. The acute azotemia most likely due to the recent IV contrast. Mild hyperkalemia, may be related to Constipation or heparin effect. Will not initiate treatments unless it gets worse. Will monitor the renal functions. Thanks again. Will follow up with you. Shaylee Finnegan MD
[2016-08-27] MEDS: ATORVASTATIN CA 40 MG TABLET (FP) PO SCH (21:44)
[2016-08-27] MEDS: INSULIN DETEMIR 100 UNITS/ML MDV SQ SCH (21:56)
[2016-08-28] MEDS: INSULIN SLIDING SCALE (NOVOLOG) 1 VIAL SQ SCH ×2 (06:26→15:52)
[2016-08-28] MEDS: LEVOTHYROXINE NA 88 MCG TABLET (FP) PO SCH (06:28)
[2016-08-28] MEDS: HEPARIN NA (PORCINE) 5,000 UNITS/ML 1ML VIAL SQ SCH ×2 (06:28→14:00)
[2016-08-28 08:44] LABS: CALCIUM 8.8 mg/dL (8.5-10.1); COCKROFT - GAULT 18.7; CREATININE 3.3 mg/dL (0.7-1.3)
[2016-08-28] MEDS ORDERED: PT OWN MED DRAWER 7, Y5N ONE (09:01)
[2016-08-28] MEDS: cloNIDine HCL 0.1 MG TABLET PO SCH (09:35)
[2016-08-28] MEDS: AMIODARONE HCL 200 MG TABLET (FP) PO SCH (09:38)
[2016-08-28] MEDS: CARVEDILOL 3.125 MG TABLET (FP) PO SCH (09:38)
[2016-08-28] MEDS: amLODIPine BESYLATE 5 MG TABLET (FP) PO SCH (09:38)
[2016-08-28] MEDS: RANITIDINE HCL 150 MG TABLET (FP) PO SCH (09:39)
[2016-08-28] MEDS: PYRIDOSTIGMINE BROMIDE 60 MG TABLET PO SCH (09:39)
[2016-08-28] MEDS: SODIUM CHLORIDE 1 GM TABLET PO SCH (09:39)
[2016-08-28] MEDS: TOLVAPTAN 15 MG TABLET PO SCH (09:40)
[2016-08-28] MEDS: POLYETHYLENE GLYCOL 3350 119 GM BTL PO SCH (09:40)
--- NOTE | 2016-08-28 10:24 | PN ---
Progress Note (short form) - Note Progress Note: Renal Follow up for Hyponatremia and CKD Pt seen and examined at the bedside no acute complaints no sob or chest pain no N/V/D for discharge home today as per PT Vital Signs Temperature 99.4 F 08/28/16 10:00 Pulse Rate 68 08/28/16 10:00 Respiratory Rate 22 08/28/16 10:00 Blood Pressure 173/94 08/28/16 10:00 O2 Sat by Pulse Oximetry (%) 100 08/27/16 21:00 Intake & Output 08/25/16 08/26/16 08/27/16 08/28/16 23:59 23:59 23:59 23:59 Intake Total 500 270 350 110 Balance 500 270 350 110 Weight 133 lb 4.8 oz 130 lb 12.8 oz Gen: NAD, awake and alert CVS: RRR, No M/R Lungs: CTA, no rales or wheeze Abd: soft NT/ND Ext: No edema, clubbing or cyanosis CBC, BMP 08/25/16 05:35 08/28/16 06:18 Current Medications Al Hydroxide/Mg Hydroxide (Mylanta Oral Suspension -) 30 ml PO Q6H PRN PRN Reason: DYSPEPSIA Last Admin: 08/27/16 02:59 Dose: 30 ml Amiodarone HCl (Cordarone -) 200 mg PO DAILY [facility] Last Admin: 08/28/16 09:38 Dose: 200 mg Amlodipine Besylate (Norvasc -) 5 mg PO DAILY [facility] Last Admin: 08/28/16 09:38 Dose: 5 mg Atorvastatin Calcium (Lipitor -) 40 mg PO HS [facility] Last Admin: 08/27/16 21:44 Dose: 40 mg Carvedilol (Coreg -) 3.125 mg PO BID [facility] Last Admin: 08/28/16 09:38 Dose: 3.125 mg Clonidine (Catapres -) 0.1 mg PO DAILY [facility] Last Admin: 08/28/16 09:35 Dose: 0.1 mg Heparin Sodium (Porcine) (Heparin -) 5,000 unit SQ TID [facility] Last Admin: 08/28/16 06:28 Dose: 5,000 unit Insulin Aspart (Novolog Vial Sliding Scale -) 1 vial SQ ACHS [facility] PRN Reason: Protocol Last Admin: 08/28/16 06:26 Dose: Not Given Insulin Detemir (Levemir Vial) 15 units SQ HS [facility] Last Admin: 08/27/16 21:56 Dose: 15 units Levothyroxine Sodium (Synthroid -) 88 mcg PO DAILY@0700 [facility] Last Admin: 08/28/16 06:28 Dose: 88 mcg Polyethylene Glycol (Miralax (For Daily Use) -) 17 gm PO DAILY [facility] Last Admin: 08/28/16 09:40 Dose: 17 grams Pyridostigmine [place] (Mestinon -) 60 mg PO BID [facility] Last Admin: 08/28/16 09:39 Dose: 60 mg Ranitidine HCl (Zantac -) 150 mg PO DAILY [facility] Last Admin: 08/28/16 09:39 Dose: 150 mg Simethicone (Mylicon -) 80 mg PO QID PRN PRN Reason: GAS Sodium Chloride (Sodium Chloride Tablet -) 1 gm PO DAILY [facility] Last Admin: 08/28/16 09:39 Dose: 1 gm Tolvaptan (Samsca (Restricted To Nephrology/Cardiology)) 7.5 mg PO DAILY [facility] Last Admin: 08/28/16 09:40 Dose: 7.5 mg A/P 66 year old Gentleman with PMhx of CKD Stage 4 (baseline Cr 2.4),Myasthenia Gravis s/p thymectomy, Hypothyrodism, DM Type 2, Hyperlipidemia, Hypertension who presented to the ED with complaints of epigastric pain and found to have BUN /Cr of 24/2.8 and Na of 124. #Hypo-osmolar Hyponatremia serum Na improved on Tolvaptan continue Tolvaptan 7.5mg Daily for now with fluid restiction can discontinue salt tabs pt to follow up at the office this Sunday at 1:45, will repeat labs at that time #Worsening Renal function in setting of CKD Stage 4 No hypotension, nephrotoxic medications identified off ARB Cr 2.9 to 3.3 but overall change in eGFR not signifincat will monitor closely as outpatient no indication for AUDIT LEAD at this time #Renal Mass s/p MRI results pending Urology follow up #CAD r/o ACS/Cardiomyopathy/V-tach Cardiology following life vest in place on [place] Thank you Damon Odell DO
--- NOTE | 2016-08-28 10:28 | PN ---
Progress Note, Physician Chief Complaint: cmp, abd pain History of Present Illness: denies abd pain denies cp, sob, palpit - Current Medication List Current Medications: Active Medications Al Hydroxide/Mg Hydroxide (Mylanta Oral Suspension -) 30 ml PO Q6H PRN PRN Reason: DYSPEPSIA Last Admin: 08/27/16 02:59 Dose: 30 ml Amiodarone HCl (Cordarone -) 200 mg PO DAILY [facility] Last Admin: 08/28/16 09:38 Dose: 200 mg Amlodipine Besylate (Norvasc -) 5 mg PO DAILY [facility] Last Admin: 08/28/16 09:38 Dose: 5 mg Atorvastatin Calcium (Lipitor -) 40 mg PO HS [facility] Last Admin: 08/27/16 21:44 Dose: 40 mg Carvedilol (Coreg -) 3.125 mg PO BID [facility] Last Admin: 08/28/16 09:38 Dose: 3.125 mg Clonidine (Catapres -) 0.1 mg PO DAILY [facility] Last Admin: 08/28/16 09:35 Dose: 0.1 mg Heparin Sodium (Porcine) (Heparin -) 5,000 unit SQ TID [facility] Last Admin: 08/28/16 06:28 Dose: 5,000 unit Insulin Aspart (Novolog Vial Sliding Scale -) 1 vial SQ ACHS [facility] PRN Reason: Protocol Last Admin: 08/28/16 06:26 Dose: Not Given Insulin Detemir (Levemir Vial) 15 units SQ HS [facility] Last Admin: 08/27/16 21:56 Dose: 15 units Levothyroxine Sodium (Synthroid -) 88 mcg PO DAILY@0700 [facility] Last Admin: 08/28/16 06:28 Dose: 88 mcg Polyethylene Glycol (Miralax (For Daily Use) -) 17 gm PO DAILY [facility] Last Admin: 08/28/16 09:40 Dose: 17 grams Pyridostigmine [place] (Mestinon -) 60 mg PO BID [facility] Last Admin: 08/28/16 09:39 Dose: 60 mg Ranitidine HCl (Zantac -) 150 mg PO DAILY [facility] Last Admin: 08/28/16 09:39 Dose: 150 mg Simethicone (Mylicon -) 80 mg PO QID PRN PRN Reason: GAS Sodium Chloride (Sodium Chloride Tablet -) 1 gm PO DAILY [facility] Last Admin: 08/28/16 09:39 Dose: 1 gm Tolvaptan (Samsca (Restricted To Nephrology/Cardiology)) 7.5 mg PO DAILY [facility] Last Admin: 08/28/16 09:40 Dose: 7.5 mg - Objective Vital Signs: Vital Signs Temperature 97.6 F 08/28/16 06:00 Pulse Rate 60 08/28/16 06:00 Respiratory Rate 18 08/28/16 06:00 Blood Pressure 169/97 08/28/16 06:00 O2 Sat by Pulse Oximetry (%) 100 08/27/16 21:00 Constitutional: Yes: Well Nourished, No Distress, Calm Neck: Yes: Tenderness Cardiovascular: Yes: S1, S2. No: Gallop, Murmur Respiratory: Yes: Regular, CTA Bilaterally. No: Accessory Muscle Use, Rales, Wheezes Extremities: No: Cold Edema: No Neurological: Yes: Alert, Oriented Psychiatric: No: Agitated Labs: CBC, BMP 08/25/16 05:35 08/28/16 06:18 INR, PTT INR 0.97 (0.82-1.09) 08/23/16 10:25 - ....Imaging EKG: Other (tele: NSR, no VT, no path agatha) Assessment/Plan Echo at last admit ([facility]): mod reduced lv fn. with mod apical AK. nl rv. nl valves. per report: cath last week, nl cors. CXR: minimal platelike atelectasis adjacent to left heart border Echo 03/2013: normal LV/RV function, impaired relaxation, mild TR, RVSP 35-40 a/p: 66 yo with h/o hypertension, diabetes mellitus, hyperlipidemia (diet controlled), CKD myasthenia gravis s/p thymectomy, hypothyroid, recent admission for takatsubo cardiomyopathy (denies preceding stressor) complicated by VT (with life vest) who presents to the emergency department with daughter for persistent epigastric pain. epigastric pain -sx's began while in [facility] recently (pain, constant gas/bloated/belching) -worsened pain at home, gm about 1-2 hours after eating or taking pills per pt , comes and goes during day--RELIEVED BY FOOD -rx'd PPI in [facility] for this -w/u of abd sx's per hospitalist, +/- GI consult if felt indicated -UNLIKELY THESE SX'S ARE DUE TO AMIO: while amio can cause GI sx's, it is highly unusual to lead to gas/belching--however not impossible and ? improving b /c of taper of amio dose -AMIO NOT TO BE STOPPED IN THIS PT HI RISK FOR RECURRENT VT--IF NO OTHER ETIOLOGY FOUND FOR GI SX'S AND THEY PERSIST, PT WILL NEED TO BE SEEN BY [facility] EP TO WEIGH IN ON AMIO DECISIONS -tx of constipation per hospitalist -sx's remain much improved/resolved takatsubo cardiomyopathy/VT - recent admit [facility] for chest pain and VT, echo with new cardiomyopathy, EF 35% . - cath wthen negative for CAD, dx'd takastubo cardiomyopathy - seen by EP there, sent home with life vest and on amiodarone load. - cont carvedilol (decreased dose due to noted bradycardia here) - ARB and spironolactone held given stage IV ckd, hyponatremia - cont amio - f/u with EP at [facility] after discharge (pt confirms appt scheduled next month) - clinically euvolemic--no lasix sinus agatha - hx very suggestive this is vagal sec to abd pain episodes (pain is associated with dizziness, diaphoresis, facial flushing) - decr'd coreg and clonidine - cont tele monitoring prolonged qt - ok to cont amio as long as QT remains <500-510 (otherwise will need EP input) - upon dr orozco review of [facility] ecg, qt is currently shorter - cont to monitor ecg as amio tapered - maintain K and Mag repleted (per usual targets) HTN - hx of labile bp - clonidine and coreg decreased here due to noted agatha, ? causing dizzy sx's - ARB and spirono on hold, as above - 08/27: bp's up this am 170s--start amlodipine 5mg qd - bp's better, cont same meds hyponatremia - mgmt per renal - thyroid optimization per pmd - improving THAO on CKD: -renal and following -suspected C.I.N. -not yet improving tele benign here, has external defibrillator on--no ongoing need for telemetry monitoring--d/c'd
--- NOTE | 2016-08-28 15:22 | PN ---
Teaching Attending Note Name of Resident: Steffi Weaver ATTENDING PHYSICIAN STATEMENT I saw and evaluated the patient. I reviewed the resident's note and discussed the case with the resident. I agree with the resident's findings and plan as documented. SUBJECTIVE:currently asymptomatic. had small BM yesterday. abdominal pain resolved. denies CP, SOB,fever, chills OBJECTIVE: Last Vital Signs Temp Pulse Resp BP Pulse Ox 99.4 F 68 22 173/94 99 08/28/16 10:00 08/28/16 10:00 08/28/16 10:00 08/28/16 10:00 08/28/16 09:00 General NAD CV S1 S2 RRR Abdomen soft NT/ND 66yo M [facility] CAD, Vtach with life vest, DM and CKD and HTN presented to the ER and was admitted for further evaluation of their emergent condition 1. Atypical CP- continuous cardiac monitoring. bradycardia resolved. cont amio and coreg. cardio on board. life vest for takatsubo cardiomyopathy/VT. will need to follow up [facility]. has appt next week. 2. epigastric pain- now resolved. abdomen MRI showing renal cyst. will need to f /u urology. 3. Constipation-had BM yesterday. cont stool softeners at home. 4. Hyponatremia-improved on tolvaptan. 1L water restriction. d/c salt tabs 5. Acute on CKD- Cr baseline 2.5. likely contrast induced. stable. evaluated by renal. will f/u in office on sunday. further workup as outpatient. avoid nephrotoxic agents. hold ARB 6. HTN-improved.cont norvasc 5mg. goal SBP <150. monitor 7. Hypothyroid- likely sick euthyroid. TSH elevated however normal T4. will not adjust LT4 at this time. will need repeat TSH in 6 weeks. 8. DM- controlled. resume home dosing of lantus, iss, bgm 9. Hyperkalemia-resolved. 10. DVT ppx- hep sq 11. d/c home with renal f/u this sunday due to persistent THAO.
[2016-08-28] MEDS ORDERED: SODIUM PHOSPHATE/NA BIPHOS 133 ML ENEMA PR ONE (15:35)
[2016-08-28 15:46] VITALS: BP 142/86; PULSE 60; TEMP 97.9
--- NOTE | 2016-08-28 20:58 | DS ---
Physical Exam: SUBJECTIVE: Patient seen and examined denies chest pain, shortness of breath, belching, abdominal pain, normal bowel movement. OBJECTIVE: Vital Signs Period Temp Pulse Resp BP Sys/Pearson Pulse Ox Last 24 Hr 97.3 F-99.4 F 60-68 18-22 137-173/73-97 99-100 PHYSICAL EXAM GENERAL: The patient is awake, alert, and fully oriented, in no acute distress. HEAD: Normal with no signs of trauma. EYES: PERRL, extraocular movements intact, sclera anicteric, conjunctiva clear. ENT: Ears normal, nares patent, oropharynx clear without exudates, moist mucous membranes. NECK: Trachea midline, full range of motion, supple. LUNGS: Breath sounds equal, clear to auscultation bilaterally, no wheezes, no crackles, no accessory muscle use. HEART: Regular rate and rhythm, S1, S2 without murmur, rub or gallop. ABDOMEN: Soft, nontender, nondistended, normoactive bowel sounds, no guarding, no rebound, no hepatosplenomegaly, no masses. EXTREMITIES: 2+ pulses, warm, well-perfused, no edema. NEUROLOGICAL: Cranial nerves II through XII grossly intact. Normal speech, gait not observed. PSYCH: Normal mood, normal affect. SKIN: Warm, dry, normal turgor, no rashes or lesions noted. LABS Laboratory Results - last 24 hr 08/27/16 08/28/16 08/28/16 21:40 05:00 06:18 Sodium 133 L Potassium 4.6 Chloride 96 L Carbon Dioxide 26 Anion Gap 11 BUN 47 H Creatinine 3.3 H POC Glucometer 184 104 Random Glucose 159 H Calcium 8.8 08/28/16 08/28/16 12:14 16:52 Sodium Potassium Chloride Carbon Dioxide Anion Gap BUN Creatinine POC Glucometer 163 145 Random Glucose Calcium Imaging: Abdominal US: The right and left kidney measured 8.2 and a cm , respectively. Slightly irregular contour of the left renal mid to lower pole, anteriorly with a mass like density measuring 2.1 cm that may represent a hypertrophied column of Naif versus a mass. It was also seen on prior ultrasound dated 04/18/2016 and prior ultrasound dated 06/12/2011 HOSPITAL COURSE: Date of Admission:08/23/16 Date of Discharge: 08/28/16 66 year old male with PMHx CKD, myasthenia gravis (s/p thymectomy), hypothyroid , DM CAD, recent diagnosed takatsubo cardiomyopathy and complicated ventricular tachycadria (with life vest), admitted for epigastric pain and to rule out ACS. Recent angiogram at [facility] was negative. #epigastric pain: improved with antacids -possibly medication related vs -ECG on admission: Sinus agatha 57 bpm, ST elev II and III, biphasic T wave V3 -when compared to recent hospitalization; this is similar ; in resolving progression -troponin wnl -lactic acid normal -amiodarone/coreg adjust as per cardio; both were decreased due to persistent bradycardia -protonix po -mylanta -abdominal US : left renal pole mass : details above -follow up with GI as an out patient; takatsubo cardiomyopathy/VT -recent admit [facility] for chest pain and VT, echo with new cardiomyopathy, EF 35% . -cath wthen negative for CAD, dx'd takastubo cardiomyopathy -seen by EP there, sent home with life vest and on amiodarone load. -ARB and spironolactone held given stage IV ckd, hyponatremia -cont amiodarone 200mg qd -f/u with EP at [facility] after discharge (pt confirms appt scheduled next month) #Hyponatremia hypoosmolar; -Na 121 ->126-->123-->124 -no signs of seizure/lethargy -urine studies: osmols -restrict fluid 1L per day -start salt tablet 1gm day while in hospital -sent home with five days of tolvaptan 0will follow up with nephrology this week #acute on chronic kidney failure poss secondary to IV contrast: Cr tredning up 2.8 -hold nephrotoxic drugs, hold diuretic #hypothyroid: most likely subacute after recent hospitalization -TSH.elevated: t4 with in normal limits -levothyroxine 88mcg qd -repeat TSH in a few weeks #DM: hemoglobin a1c -lantus 15 U sq HS -insulin ss ; bgm #mass like density of left kidney: -f/u MRI with contrast once kidney function improves Minutes to complete discharge: 35 Discharge Summary Reason For Visit: HICCUPS,HYPONATREMIA,ABN ELECTROCARDIOGRAPHY Condition: Improved - Instructions Diet, Activity, Other Instructions: Mr. Bojorquez, we have worked up your symptoms of indigestion. These symptoms may have been due to medications,or increased acid production. We recommend that you follow up with a tomato paste maker for further evaluation. During your visit you have also been treated for low sodium and recent kidney injury. Your kidney injury was most likely related to recent IV contrast exposure. Please follow up with your kidney doctor, with in one with to evaluate your electrolyte and kidney functioning status on Sunday at 1:45pm Be advised your medications have been changed. Follow up with your primary care doctor this week. you will need to have your thyroid function repeated in 6 weeks You will also need re-evaluation of the renal mass found on MRI with contrast, once your kidney functioning improves. Please follow up with your lode miner and EP physician as soon as possible. Follow diabetic diet. If you experience any worsening symptoms including chest pain, shortness of breath, weakness, please return to the emergency room. Referrals: Aparna Ley MD [Staff Physician] - Maryellen Kline MD [Primary Care Provider] - Scott Recinos MD [Staff Physician] - Damon Odell MD [Staff Physician] - Disposition: HOME - Home Medications Comprehensive Discharge Medication List: Ambulatory Orders Insulin Glargine,Hum.[email or web address].anlog [Lantus Solostar PEN -] 15 units SQ HS 04/29/13 Levothyroxine [Synthroid -] 88 mcg PO DAILY 04/29/13 Atorvastatin Ca [Lipitor] 40 mg PO HS 08/23/16 Pyridostigmine [Mestinon -] 60 mg PO BID 08/23/16 Amiodarone HCl [Cordarone -] 200 mg PO DAILY #15 tablet 08/28/16 Amlodipine Besylate [Norvasc -] 5 mg PO DAILY #30 tablet 08/28/16 Carvedilol [Coreg -] 3.125 mg PO BID #30 tablet 08/28/16 Clonidine HCl [Catapres -] 0.1 mg PO DAILY #30 tablet 08/28/16 Mag Hydrox/Al Hydrox/Simeth [Mylanta Oral Suspension -] 30 ml PO Q6H PRN #0 bottle 08/28/16 Ranitidine [Zantac -] 150 mg PO DAILY #30 tablet 08/28/16 Simethicone [Mylicon -] 80 mg PO QID PRN #0 tab.chew 08/28/16 Tolvaptan [Samsca (Restricted To Nephrology/Cardiology)] 7.5 mg PO DAILY #4 tab 08/28/16 This patient is new to me today: No Emergency Visit: Yes ED Registration Date: 08/23/16 Care time: The patient presented to the Emergency Department on the above date and was hospitalized for further evaluation of their emergent condition. Critical Care patient: No - Discharge Referral Referred to [facility] Med P.C.: No
== END 2016-08-28 17:35 | disposition home or self-care (01) | DRG 683 ==
LOC: JER 09:48 → JERBED 11:53 → J4W 18:59
PROVIDERS: ADMIT Internal Medicine; ATTEND Internal Medicine
DX: N17.9 Acute kidney failure, unspecified (principal); E87.1 Hypo-osmolality and hyponatremia; I51.81 Takotsubo syndrome; I47.2 Ventricular tachycardia; N14.1 Nephropathy induced by other drugs, medicaments and biological substances; N18.4 Chronic kidney disease, stage 4 (severe); E78.5 Hyperlipidemia, unspecified; Z79.4 Long term (current) use of insulin; R06.6 Hiccough; R07.89 Other chest pain; E03.9 Hypothyroidism, unspecified; T50.8X5A Adverse effect of diagnostic agents, initial encounter; I25.10 Atherosclerotic heart disease of native coronary artery without angina pectoris; I45.81 Long QT syndrome; E11.22 Type 2 diabetes mellitus with diabetic chronic kidney disease; I12.9 Hypertensive chronic kidney disease with stage 1 through stage 4 chronic kidney disease, or unspecified chronic kidney disease; E87.5 Hyperkalemia; R00.1 Bradycardia, unspecified; K59.00 Constipation, unspecified; N28.1 Cyst of kidney, acquired; G70.00 Myasthenia gravis without (acute) exacerbation
CPT/HCPCS: 36415; 71010-TC; 74181-TC; 76700-TC; 80048; 80053; 81003; 81015; 82533; 82550; 82553; 82570; 83605; 83735; 83930; 83935; 84100; 84156; 84439; 84443; 84484; 84540; 84550; 85025; 85027; 85610; 93005; 93010; 99285-25; J1644

== ENCOUNTER 2016-09-06 11:05 | Emergency (ER) | payer OTHER ==
[2016-09-06 11:30] VITALS: BP 135/76; PULSE 64; TEMP 98.2; BMI 21.9
--- NOTE | 2016-09-06 12:39 | PDOC ---
History of Present Illness - General Chief Complaint: Itching Stated Complaint: RASH ON BODY Time Seen by Provider: 09/06/16 11:55 History Source: Patient Exam Limitations: No Limitations - History of Present Illness Initial Comments: 09/06/16 12:35 66 yr male with multiple medical problems presents to ER c/o itching to back chest and arms, behind ears and face for 4 days after having life vest Holter Monitor placed. Pt has no rash, no redness. Pt has no shortness of breath or chest pain . Pt saw PMD 2 days ago given atartax for itching pt states is not helping. Timing/Duration: reports: week Severity: Yes: moderate Location: reports: face, torso Past History - Past Medical History Allergies/Adverse Reactions: Allergies Allergy/AdvReac Type Severity Reaction Status Date / Time No Known Allergies Allergy Verified 09/06/16 11:25 Home Medications: Ambulatory Orders Insulin Glargine,Hum.rec.anlog [Lantus Solostar PEN -] 15 units SQ HS 04/29/13 Levothyroxine [Synthroid -] 88 mcg PO DAILY 04/29/13 Atorvastatin Ca [Lipitor] 40 mg PO HS 08/23/16 Pyridostigmine [Mestinon -] 60 mg PO BID 08/23/16 Amiodarone HCl [Cordarone -] 200 mg PO DAILY #15 tablet 08/28/16 Amlodipine Besylate [Norvasc -] 5 mg PO DAILY #30 tablet 08/28/16 Carvedilol [Coreg -] 3.125 mg PO BID #30 tablet 08/28/16 Clonidine HCl [Catapres -] 0.1 mg PO DAILY #30 tablet 08/28/16 Mag Hydrox/Al Hydrox/Simeth [Mylanta Oral Suspension -] 30 ml PO Q6H PRN #0 bottle 08/28/16 Ranitidine [Zantac -] 150 mg PO DAILY #30 tablet 08/28/16 Simethicone [Mylicon -] 80 mg PO QID PRN #0 tab.chew 08/28/16 Tolvaptan [Samsca (Restricted To Nephrology/Cardiology)] 7.5 mg PO DAILY #4 tab 08/28/16 Diphenhydramine [Benadryl -] 50 mg PO TID PRN #20 capsule 09/06/16 Anemia: No Asthma: No Cancer: No Cardiac Disorders: (SVT) CVA: No COPD: No CHF: No Dementia: No Diabetes: Yes GI Disorders: No Disorders: No HTN: Yes Hypercholesterolemia: Yes Liver Disease: No Seizures: Yes (episodes during sleep of inability to move or speak) Thyroid Disease: Yes (HYPO) Other medical history: CRI - Immunization History Immunization Up to Date: No - Psycho/Social/Smoking Cessation Hx Anxiety: No Suicidal Ideation: No Smoking Status: No Smoking History: Never smoked Have you smoked in the past 12 months: No Number of Cigarettes Smoked Daily: 0 Hx Alcohol Use: No Drug/Substance Use Hx: No Substance Use Type: None Hx Substance Use Treatment: No Review of Systems - Review of Systems Able to Perform ROS?: Yes Is the patient limited Mongolian proficient: No Constitutional: No: Symptoms Reported HEENTM: No: Symptoms Reported Respiratory: No: Symptoms reported Cardiac (ROS): No: Symptoms Reported ABD/GI: No: Symptoms Reported : No: Symptoms Reported Musculoskeletal: No: Symptoms Reported Integumentary: Yes: Symptoms Reported *Physical Exam - Vital Signs Last Vital Signs Temp Pulse Resp BP Pulse Ox 98.2 F 64 19 135/76 100 09/06/16 11:26 09/06/16 11:26 09/06/16 11:26 09/06/16 11:26 09/06/16 11:26 - Physical Exam General Appearance: Yes: Nourished, Appropriately Dressed HEENT: positive: EOMI, CRISTOPHER, Normal ENT Inspection, TMs Normal, Pharynx Normal, Other (bilateral swelling below both eyes , mild erythema) Neck: positive: Supple. negative: Tender Respiratory/Chest: positive: Lungs Clear, Normal Breath Sounds. negative: Chest Tender Cardiovascular: positive: Regular Rhythm, Regular Rate Gastrointestinal/Abdominal: positive: Normal Bowel Sounds, Soft Musculoskeletal: positive: Normal Inspection Extremity: positive: Normal Capillary Refill, Normal Inspection, Normal Range of Motion Integumentary: positive: Normal Color, Dry, Warm Neurologic: positive: Fully Oriented, Alert, Normal Mood/Affect, Normal Response , Motor Strength 5/5 ED Treatment Course - LABORATORY CBC & Chemistry Diagram: 09/06/16 12:52 Medical Decision Making - Medical Decision Making 09/06/16 12:38 cc: itchy skin chest, back face behind ears no other complaints no rash, however face has some slight swelling below both eyes with erythema no sneezing or congestion will check labs, renal functions liver enzymes 09/06/16 13:55 pt feels better after benadryl shot. itching has almost subsided. labs pending. 09/06/16 14:35 labs checked no change from baseline will dc home with strict follow up with PMD *DC/Admit/Observation/Transfer Diagnosis at time of Disposition: Pruritus - Discharge Dispostion Disposition: HOME Condition at time of disposition: Good - Prescriptions Prescriptions: Diphenhydramine [Benadryl -] 50 mg PO TID PRN #20 capsule PRN Reason: puritus - Referrals Referrals: Sunny Cannon MD [Staff Physician] - - Patient Instructions Additional Instructions: follow with your doctor for follow up regarding the itching take benadryl as needed for itching drink pleanty of water and make sure you use a lubricating lotions such as Lubriderm or Aveeno to back, chest and arms
[2016-09-06 14:22] LABS: ALBUMIN 4.1 g/dl (3.4-5.0); CALCIUM 8.8 mg/dL (8.5-10.1); COCKROFT - GAULT 22.94; CREATININE 2.8 mg/dL (0.7-1.3); TOT PROT 7.5 g/dl (6.4-8.2)
[2016-09-06 15:19] LABS: URIC ACID 6.7 mg/dL (2.6-7.2)
== END 2016-09-06 14:49 | disposition home or self-care (01) ==
LOC: JERFT 11:05
PROC: 3E023GC Introduction of Other Therapeutic Substance into Muscle, Percutaneous Approach (ICD-10-PCS; principal; 2016-09-06)
DX: L29.9 Pruritus, unspecified (principal)
CPT/HCPCS: 36415; 80053; 84550; 96372; 99281-25

== ENCOUNTER 2017-09-23 14:10 | Emergency (ER) | payer OTHER ==
[2017-09-23 14:33] VITALS: BP 144/76; PULSE 63; TEMP 98.6; BMI 21.4
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
== END 2017-09-23 15:00 | disposition home or self-care (01) ==
LOC: JERFT 14:10
DX: S29.012A Strain of muscle and tendon of back wall of thorax, initial encounter (principal); V49.49XA Driver injured in collision with other motor vehicles in traffic accident, initial encounter; Y92.488 Other paved roadways as the place of occurrence of the external cause; Y93.89 Activity, other specified; Y99.8 Other external cause status; E11.9 Type 2 diabetes mellitus without complications; Z79.4 Long term (current) use of insulin; Z79.84 Long term (current) use of oral hypoglycemic drugs; E03.9 Hypothyroidism, unspecified; G40.909 Epilepsy, unspecified, not intractable, without status epilepticus; E78.00 Pure hypercholesterolemia, unspecified; Z86.79 Personal history of other diseases of the circulatory system
CPT/HCPCS: 99281-25